=== PATIENT | male | born 1945 | race Caucasian/White ===

== ENCOUNTER 2022-11-28 14:54 | Observation (INO) ==
--- NOTE | 2022-11-28 15:39 | XRay Report ---
XR chest 1V portable HISTORY: 77 years-old Male sob acute shortness of breath COMPARISON: AP view of the chest TECHNIQUE: AP view of the chest FINDINGS: Cardiomediastinal and hilar silhouettes are unchanged. No pneumothorax, pleural effusion, airspace co nsolidation or overt edema. Unchanged right hemidiaphragmatic elevation. Degenerative changes of the shoulders and spine. IMPRESSION: Cardiomegaly without acute process. ACT 112: Negative or not required by law. The above report was generated using voice recognition software. It may contain grammatical, syntax o r spelling errors. Electronically signed by: Denys Hsieh M.D. 11/28/2022 3:37 PM
[2022-11-28] MEDS ORDERED: ASPIRIN CHEW 324 MG PO STA (15:40)
[2022-11-28 16:12] LABS: Basophils # (auto) 0.03 K/uL (0-0.2); Basophils % (auto) 0.3 %; Eosinophils # (auto) 0.07 K/uL (0-0.50); Eosinophils % (auto) 0.7 %; Hematocrit (blood only) 49.1 % (42.0-52.0); Hemoglobin 16.4 g/dl (14.0-18.0); Immature Granulocytes # (auto) 0.06 K/uL (0.01-0.20); Immature Granulocytes % (auto) 0.6 %; Lymphocytes # (auto) 1.47 K/uL (1.2-3.4); Lymphocytes % (auto) 13.8 %; Mean Corpuscular Hemoglobin 33.2 pg (25.0-34.0); Mean Corpuscular Hgb Conc 33.4 g/dL (32.0-36.0); Mean Corpuscular Volume 99.4 fL (80.0-100.0); Mean Platelet Volume 10.2 fL (9.4-12.4); Monocytes % (auto) 7.5 %; Neutrophils % (auto) 77.1 %; Platelet Count 169 K/uL (130-400); RDW Coefficient of Variation 13.3 % (11.5-14.5); RDW Standard Deviation 48.6 fL (36.4-46.3); Red Blood Count 4.94 M/uL (4.70-6.10); White Blood Count 10.63 K/ul (4.8-10.8)
--- NOTE | 2022-11-28 16:12 | Emergency Department Note ---
Impression & Plan LANG (dyspnea on exertion), Elevated troponin I level, Abnormal EKG ED Provider Note NAME: GABRIELE CALI AGE: 77 SEX: M : 1945 ARRIVES VIA: Walk-In INFORMANT: Patient, ED PROVIDER(S): Juan Dupree DO CHIEF COMPLAINT: Difficulty breathing HPI: The patient is a 77-year-old male who presented to the emergency department from his primary care physician's office. The patient states he normally is able to get on an exercise machine and do a full workout. He has been noticing over the last 2 to 3 days that his exercise tolerance has been decreased. He becomes very short of breath with any exertion. He denied having any chest pain. He denies have any lower extremity swelling. At rest he states he has no chest pain shortness of breath or other symptoms. The patient denies having any nausea or vomiting. He went to see his family doctor for the symptoms and had an EKG which was abnormal. For this reason he was sent to the emergency department for further evaluation. He has no cardiac history. He states he is being treated for high cholesterol or hypertension. The patient states he has been compliant with his outpatient medications. ROS: See above HPI for pertinent positives & negatives. A total of 10 systems reviewed and were otherwise negative. PAST MEDICAL HISTORY: See Below PAST SURGICAL HISTORY: See Below FAMILY HISTORY: See Below SOCIAL HISTORY: See Below HOME MEDICATIONS: See Below ALLERGIES: See Below VITALS: See Below PHYSICAL EXAMINATION: GENERAL: Patient is awake alert in no acute distress patient is resting comfortably and showing no signs of anxiety EYES: The conjunctivae are clear. The pupils are round and reactive. EARS, NOSE, MOUTH AND THROAT: The nose is without any evidence of any deformity. NECK: The neck is nontender and supple. RESPIRATORY: Normal respiratory effort is noted there is no evidence of wheezing rhonchi or rales CARDIOVASCULAR: Regular rate and rhythm noted there no murmurs rubs or gallops normal S1 normal S2. GASTROINTESTINAL: The abdomen is soft. Abdomen is nontender. MUSCULOSKELETAL/EXTREMITIES: There is no evidence of gross deformity full range of motion is noted in the hips and shoulders. SKIN: There is no obvious evidence of any rash. Trace pedal edema was noted bilaterally. Skin was warm and dry. NEUROLOGIC: Patient is awake alert and oriented x3 MEDICAL DECISION MAKING: The patient is a 77-year-old male who presented to the emergency department for an evaluation of a dyspnea on exertion. The patient was experiencing dyspnea exertion over the course the last 48 hours. EKG was done in the office which revealed T wave abnormalities that were consistent with ischemia. The patient continues to have T wave abnormalities on EKG in the emergency department. He was also found to have an elevation in his troponin. I discussed patient's laboratory and radiographic studies with him. I also discussed the limitations of the emergency room work-up for coronary artery disease and ischemia in the emergency department. Ultimately I feel the patient is likely having an anginal equivalent. He does not have ongoing symptoms. He is not tachycardic or hypoxic. I do feel the patient will require further inpatient management which could include further cardiac work-up including serial troponins or possibly stress test or even cardiac catheterization. I discussed this with the patient and he was agreeable with the plan. The patient was asymptomatic at this time. He was treated with aspirin in the emergency department. His case was discussed with the on-call [facility] hospitalist. Triage Nursing notes reviewed. Prior medical records reviewed Vital Signs: reviewed and remarkable for no significant abnormalities Differential diagnosis: Reactive airway disease, pneumonia, pneumothorax, COPD, CHF, infections, cardiac ischemia, pulmonary embolism, musculoskeletal, gastrointestinal, as well as other pathologies. ER treatment provided: See below Diagnostics interpreted by me: ECG: EKG was obtained in the emergency department. My interpretation is normal sinus rhythm at 89 bpm. There is no ectopy. Diffuse ST abnormalities with T wave versions were noted. This was compared to a tracing from May 02, 2015. The T wave abnormalities are new compared to the previous tracing. The patient's EKG from the primary care physician's office was reviewed. My interpretation is normal sinus rhythm at 85 bpm. T wave inversions were noted in the inferior anterior and lateral leads. The high lateral leads appear to be spared. This compares similarly to the EKG obtained in the emergency department. Cardiac Monitoring: An order was placed for continuous cardiac monitoring. The monitor shows a rate of 85 bpm with sinus rhythm. Laboratory studies: As stated above and show below. Imaging studies: See below. Radiographic imaging was reviewed by myself Consultation(s): Dr. White was notified about the patient. 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 Beliefs That Will Affect Care: None Current Living Situation: Spouse Feels Safe at Home: Yes Assistive Devices: None Allergies Allergies Allergy/AdvReac Type Severity Reaction Status Date / Time No Known Allergies Allergy Unknown Verified 11/28/22 17:10 Home Meds Home Medications Medication Instructions Recorded Confirmed atorvastatin 40 mg tablet 40 mg PO QAM 12/10/21 11/28/22 latanoprost 0.005 % eye drops 1 drp OPB HS 12/10/21 11/28/22 losartan 50 mg tablet 50 mg PO QAM 12/10/21 11/28/22 meloxicam 7.5 mg tablet 7.5 mg PO QAM 12/10/21 11/28/22 timolol 0.5 % eye drops 1 drp OPL BID 12/10/21 11/28/22 ammonium lactate 12 % lotion 1 applic topical BID 11/28/22 11/28/22 olmesartan 20 mg tablet 20 mg PO DAILY 11/28/22 11/28/22 Results & Data (ED) Vital Signs Vital Signs - 24 hr 11/28/22 15:00 11/28/22 15:54 11/28/22 17:06 Temperature 36.3 C L Temperature Source Temporal Artery Scan Pulse Rate 91 H Pulse Rate [Apical] 85 82 Pulse Rhythm [Apical] Regular Respiratory Rate 18 16 20 Respiratory Effort / Characteristics Non-Labored Non-Labored Non-Labored Respiratory Depth Normal Normal Normal Respiratory Pattern Blood Pressure 148/96 H Blood Pressure [Right Arm] 138/76 139/83 Blood Pressure Mean 113 Blood Pressure Mean [Right Arm] 96 101 Pulse Oximetry 96 94 Oxygen Delivery Method Room Air Room Air Sepsis Recent Fever Within 48 Hours No Sepsis New/Unexplained Change in Mental Status No Sepsis Action Taken by Nursing No Action Required 11/28/22 17:07 11/28/22 15:00 Temperature Temperature Source Pulse Rate 82 Pulse Rate [Apical] Pulse Rhythm [Apical] Respiratory Rate 24 Respiratory Effort / Characteristics Non-Labored Respiratory Depth Normal Respiratory Pattern Regular Blood Pressure Blood Pressure [Right Arm] Blood Pressure Mean Blood Pressure Mean [Right Arm] Pulse Oximetry 94 Oxygen Delivery Method Room Air Sepsis Recent Fever Within 48 Hours Sepsis New/Unexplained Change in Mental Status Sepsis Action Taken by Detention Medications Current Medication List: was personally reviewed by me Laboratory Data Attestation: I reviewed the patient's lab results. 11/28/22 16:05 11/28/22 16:05 Lab Results 11/28/22 11/28/22 11/28/22 Range/Units 16:05 16:05 16:05 WBC 10.63 (4.8-10.8) K/ul RBC 4.94 (4.70-6.10) M/uL Hgb 16.4 (14.0-18.0) g/dl Hct 49.1 (42.0-52.0) % MCV 99.4 (80.0-100.0) fL MCH 33.2 (25.0-34.0) pg MCHC 33.4 (32.0-36.0) g/dL RDW Std Deviation 48.6 H (36.4-46.3) fL RDW Coeff of [place] 13.3 (11.5-14.5) % Plt Count 169 (130-400) K/uL MPV 10.2 (9.4-12.4) fL Immature Gran % (Auto) 0.6 % Neut % (Auto) 77.1 % Lymph % (Auto) 13.8 % [place] % (Auto) 7.5 % Eos % (Auto) 0.7 % Baso % (Auto) 0.3 % Neut # (Auto) 8.20 H (1.40-6.50) K/uL Lymph # (Auto) 1.47 (1.2-3.4) K/uL [place] # (Auto) 0.80 H (0.11-0.59) K/uL Eos # (Auto) 0.07 (0-0.50) K/uL Baso # (Auto) 0.03 (0-0.2) K/uL Immature Gran # (Auto) 0.06 (0.01-0.20) K/uL PT 10.8 (9.0-12.0) Seconds INR 1.0 (0.9-1.1) APTT 24.9 (21.0-31.0) Seconds PTT Ratio 0.9 Sodium 142 (136-145) mmol/L Potassium 4.3 (3.5-5.1) mmol/L Chloride 105 (98-107) mmol/L Carbon Dioxide 31 (21-32) mmol/L Anion Gap 6 (3-11) BUN 20 (6-23) mg/dl Creatinine 0.96 (0.6-1.4) mg/dl Est Cr Clr Drug Dosing 72.9 ml/min Est GFR ( Amer) 87.4 ml/min Est GFR (Non-Af Amer) 75.4 ml/min BUN/Creatinine Ratio 20.8 H (10-20) Glucose 105 H (70-99(Fasting)) mg/dl Calcium 9.2 (8.5-10.1) mg/dl Total Bilirubin 1.4 H (0.2-1.0) mg/dl AST 24 (13-39) U/L ALT 27 (7-52) U/L Alkaline Phosphatase 70 (34-104) U/L Troponin I High Sens 79.3 H* (0-20) pg/ml Total Protein 6.5 (6.0-8.3) gm/dl Albumin 3.8 (3.4-5.0) gm/dl Globulin 2.7 (2.5-4.0) gm/dl Albumin/Globulin Ratio 1.4 (0.9-2) SARS-CoV-2, RNA, NAAT (NEGATIVE) 11/28/22 Range/Units 16:05 WBC (4.8-10.8) K/ul RBC (4.70-6.10) M/uL Hgb (14.0-18.0) g/dl Hct (42.0-52.0) % MCV (80.0-100.0) fL MCH (25.0-34.0) pg MCHC (32.0-36.0) g/dL RDW Std Deviation (36.4-46.3) fL RDW Coeff of [place] (11.5-14.5) % Plt Count (130-400) K/uL MPV (9.4-12.4) fL Immature Gran % (Auto) % Neut % (Auto) % Lymph % (Auto) % [place] % (Auto) % Eos % (Auto) % Baso % (Auto) % Neut # (Auto) (1.40-6.50) K/uL Lymph # (Auto) (1.2-3.4) K/uL [place] # (Auto) (0.11-0.59) K/uL Eos # (Auto) (0-0.50) K/uL Baso # (Auto) (0-0.2) K/uL Immature Gran # (Auto) (0.01-0.20) K/uL PT (9.0-12.0) Seconds INR (0.9-1.1) APTT (21.0-31.0) Seconds PTT Ratio Sodium (136-145) mmol/L Potassium (3.5-5.1) mmol/L Chloride (98-107) mmol/L Carbon Dioxide (21-32) mmol/L Anion Gap (3-11) BUN (6-23) mg/dl Creatinine (0.6-1.4) mg/dl Est Cr Clr Drug Dosing ml/min Est GFR ( Amer) ml/min Est GFR (Non-Af Amer) ml/min BUN/Creatinine Ratio (10-20) Glucose (70-99(Fasting)) mg/dl Calcium (8.5-10.1) mg/dl Total Bilirubin (0.2-1.0) mg/dl AST (13-39) U/L ALT (7-52) U/L Alkaline Phosphatase (34-104) U/L Troponin I High Sens (0-20) pg/ml Total Protein (6.0-8.3) gm/dl Albumin (3.4-5.0) gm/dl Globulin (2.5-4.0) gm/dl Albumin/Globulin Ratio (0.9-2) SARS-CoV-2, RNA, NAAT NEGATIVE (NEGATIVE) Administered Medications Discontinued Medications Aspirin (Aspirin Chew 324 Mg) 324 mg PO NOW STA Stop: 11/28/22 15:41 Last Admin: 11/28/22 16:12 Dose: 324 mg Documented By: LESLIE Imaging Data Radiologist's Impression: Chest X-Ray 11/28/22 15:06 XR chest 1V portable HISTORY: 77 years-old Male sob acute shortness of breath COMPARISON: AP view of the chest TECHNIQUE: AP view of the chest FINDINGS: Cardiomediastinal and hilar silhouettes are unchanged. No pneumothorax, pleural effusion, airspace consolidation or overt edema. Unchanged right hemidiaphragm atic elevation. Degenerative changes of the shoulders and spine. IMPRESSION: Cardiomegaly without acute process. ACT 112: Negative or not required by law. The above report was generated using voice recognition software. It may contain grammatical, syntax or spelling errors. Electronically signed by: Denys Hsieh M.D. 11/28/2022 3:37 PM Discharge Plan Visit Data Chief Complaint: Shortness of Breath/Dyspnea Stated Complaint: ABNORMAL LAB RESULTS ED Provider: Juan Dupree Discharge Problem: LANG (dyspnea on exertion), Elevated troponin I level, Abnormal EKG Patient Disposition: Being Evaluated by Hospitalist Forms Stand Alone Forms: My [facility] Prescriptions Prescriptions: No Action losartan 50 mg Tablet 50 mg PO QAM latanoprost 0.005 % Drops 1 drp OPB HS atorvastatin 40 mg Tablet 40 mg PO QAM meloxicam 7.5 mg Tablet 7.5 mg PO QAM timolol 0.5 % Drops 1 drp OPL BID olmesartan 20 mg tablet 20 mg PO DAILY ammonium lactate 12 % lotion 1 applic TOPICAL BID Rx Instructions: apply to affected area on arms and legs Referrals Referrals: Davida Mota CRNP [Primary Care Provider] -
[2022-11-28 16:25] LABS: Partial Thromboplastin Ratio 0.9; Partial Thromboplastin Time 24.9 Seconds (21.0-31.0); Prothrombin Time 10.8 Seconds (9.0-12.0)
[2022-11-28 16:33] LABS: Albumin Level 3.8 gm/dl (3.4-5.0); Bilirubin,Total 1.4 mg/dl (0.2-1.0); Calcium 9.2 mg/dl (8.5-10.1); Potassium 4.3 mmol/L (3.5-5.1)
[2022-11-28 16:39] LABS: Albumin Globulin Ratio 1.4 (0.9-2); BUN Creatinine Ratio 20.8 (10-20); Creatinine Clr Calc Pharmacy 72.9 ml/min; Est GFR (African American) 87.4 ml/min; Est GFR (Non-African American) 75.4 ml/min; Globulin 2.7 gm/dl (2.5-4.0); Total Protein 6.5 gm/dl (6.0-8.3)
[2022-11-28 16:48] LABS: Troponin I High Sensitivity 79.3 pg/ml (0-20)
--- NOTE | 2022-11-28 17:13 | History & Physical Report ---
Date of Service November 28, 2022 Assessment & Plan (1) LANG (dyspnea on exertion): Plan: -Admit to med/tele -The patient is currently afebrile, hemodynamically stable, and stable on RA -Patient has been experiencing increased LANG/fatigue with his normal workout routine this week, ECG's obtained at his PCP and in the ED do show new t-wave changes in the inferior and anterolateral leads -The patient has been asymptomatic at rest, he does have risk factors for ACS such as obesity, hyperlipidemia and HTN but no previous cardiac history -Initial high sensitivity trop was elevated at 79, will obtain a repeat 2 hour then trend q6h overnight -Patient was given 324 mg PO aspirin in the ED, will continue with 81 mg PO daily for now -Will start the patient on 25 mg Po BID of metoprolol tartrate for anginal symptoms at this time -Continue to monitor on tele/pulse oximetry -Will obtain a TTE tomorrow -AM CBC and BMP (2) Elevated troponin I level: Plan: -See LANG (3) Hypertension: Plan: -Patient now on Olmesartan instead of losartan, continue -Starting BID metoprolol 25 mg PO (4) HLD (hyperlipidemia): Plan: -Continue statin (5) Glaucoma: Plan: -Continue his eye drops Plan The patient was discussed with Dr. White at the time of the admission History of Present Illness Chief Complaint: SOB Primary Care Provider: Davida Gray is a 77 year old male with a PMH significant for OA, hyperlipidemia, HTN, and glaucoma who presented to the [facility] ED on 11/28/22 with a chief complaint of dyspnea on exertion. Per the ED staff, the patient is a very active person and exercises regularly. Over the past 48 hours the patient has been significantly more weak and SOB with exertion. He went to his PCP who obtained an ECG which was apparently abnormal so they sent him to the ED. In the ED the patient was found to be afebrile, hemodynamically stable, and stable on RA. Labs were remarkable for a CBC with a WBC, hgb, and platelet count WNL, coags WNL, cr of 0.96, stable electrolytes, total bili of 1.4, initial high sensitivity trop of 79, and covid negative. Chest xray was read as "Cardiomegaly without acute process.". Her ECG in the ED today shows a NSR with left axis deviation, prolonged QTc of 535, and t-wave inversions in the inferior and anterolateral leads. Prior to admission the patient was given 324 mg PO aspirin. At the time of the exam the patient was resting comfortably in bed in no acute distress with his sitting bedside. The patient states that we goes to the gym daily. His typical workout routine is to use the treadmill and elliptical 30 minutes each. He always uses the same speed and resistance settings at baseline. On 11/25/22 the patient noticed that he was significantly more winded and "just didn't feel right" while doing his normal workouts. He denied any symptoms while at rest. Over the past two days he has had to significantly reduce his speed and resistance settings due to these symptoms, which prompted him to call his PCP. At the time of the exam the patient is currently asymptomatic while sitting in bed. He denies any chest pain, but states that he was feeling winded and tired more than usual during his workouts. He denies any other symptoms such as arm, neck, or jaw pain. The patient denies a previous cardiac history, he has a history of HTN and hyperlipidemia but is on a medication regimen and has labs checked consistently. His mother and father both passes from [facility] in their 70's but he has no family history of sudden cardiac before the age of 50. When asked about LANG and increased fatigue prior to this week he does not believe that he has been experiencing any. The patient is a Full Code and would want his to make medical decisions for him if he could not make them himself. Please refer to Dr. Dougherty's attestation for any changes in the treatment plan Allergies Allergy/AdvReac Type Severity Reaction Status Date / Time No Known Allergies Allergy Unknown Verified 11/28/22 17:10 Home Medications Medication Instructions Recorded Confirmed Type atorvastatin 40 mg tablet 40 mg PO QAM 12/10/21 11/28/22 History latanoprost 0.005 % eye drops 1 drp OPB HS 12/10/21 11/28/22 History meloxicam 7.5 mg tablet 7.5 mg PO QAM 12/10/21 11/28/22 History timolol 0.5 % eye drops 1 drp OPL BID 12/10/21 11/28/22 History ammonium lactate 12 % lotion 1 applic topical BID 11/28/22 11/28/22 History olmesartan 20 mg tablet 20 mg PO DAILY 11/28/22 11/28/22 History Past Med/Surg History Medical History (Updated 11/28/22 @ 17:45 by Conor Wood PA-C) Glaucoma HLD (hyperlipidemia) Hypertension Osteoarthritis Surgical History History of arthroscopy of left knee x 2 History of cataract surgery left History of colonoscopy History of right hip replacement History of tonsillectomy Status post total left knee replacement Family History Other No family history of adverse response to anesthesia Social History Smoking Status: Never smoker Second Hand Exposure: No; Do You Dip or Chew Tobacco: No; Hx Alcohol Use: No Hx Substance Use: No Preferred Language: Vietnamese Communication Ability: Effective 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 All systems have been reviewed and are otherwise negative. Physical Exam Physical Exam: Physical Exam: General: In no acute distress, stated age, well-nourished, good hygiene HEENT: Normocephalic, atraumatic, no scleral icterus, pupils around round, symmetrical, and reactive to light, moist mucus membranes, trachea midline, no thyromegaly Chest/Pulm: No respiratory distress, symmetrical chest expansion, clear breath sounds throughout Cardiac: RRR, no murmurs noted Abdomen: Negative for ascites and bruising, normoactive bowel sounds, soft, non-tender to palpation throughout Musculoskeletal: No acute trauma on exam Extremities: Radial, dorsalis pedis, and posterior tibial pulses are intact and symmetrical, no edema noted in the BL LE's Skin: Warm, dry, no rashes , lesions, or scars noted Neuro: Alert and oriented to person, place, month, year, and president, no focal defects, CN II-XII tested and intact, finger to nose test negative, no tremors noted Psych: No acute distress, calm and cooperative during the exam Results & Data Results & Data ([facility]) Vital Signs (Past 12 Hours) Vital Signs Temp Pulse Pulse Resp BP BP Pulse Ox 11/28/22 17:06 82 20 139/83 94 11/28/22 15:54 85 16 138/76 11/28/22 15:00 36.3 C L 91 H 18 148/96 H 96 O2 Del Method 11/28/22 17:06 Room Air 11/28/22 15:54 11/28/22 15:00 Room Air Laboratory Results Abnormal lab results 11/28/22 11/28/22 Range/Units 16:05 16:05 RDW Std Deviation 48.6 H (36.4-46.3) fL Neut # (Auto) 8.20 H (1.40-6.50) K/uL [place] # (Auto) 0.80 H (0.11-0.59) K/uL BUN/Creatinine Ratio 20.8 H (10-20) Glucose 105 H (70-99(Fasting)) mg/dl Total Bilirubin 1.4 H (0.2-1.0) mg/dl Troponin I High Sens 79.3 H* (0-20) pg/ml Diagnostic Findings Chest X-Ray 11/28/22 15:06 XR chest 1V portable HISTORY: 77 years-old Male sob acute shortness of breath COMPARISON: AP view of the chest TECHNIQUE: AP view of the chest FINDINGS: Cardiomediastinal and hilar silhouettes are unchanged. No pneumothorax, pleural effusion, airspace consolidation or overt edema. Unchanged right hemidiaphragmatic elevation. Degenerative changes of the shoulders and spine. IMPRESSION: Cardiomegaly without acute process. ACT 112: Negative or not required by law. The above report was generated using voice recognition software. It may contain grammatical, syntax or spelling errors. Electronically signed by: Denys Hsieh M.D. 11/28/2022 3:37 PM ECG Additional Comments: Poor data quality, interpretation may be adversely affected Normal sinus rhythm Left axis deviation Minimal voltage criteria for LVH, may be normal varia nt T wave abnormality, consider anterolateral ischemia Prolonged QT Abnormal ECG When compared with ECG of 02-MAY-2015 13:39, T wave inversion more evident in Inferior leads T wave inversion now evident in Anterolateral leads ... Code Status & VTE Plan Code Status Full code VTE Prophylaxis Plan VTE Prophylaxis will be ordered: Yes Supervising Physician Co-Signing Physician Notes I personally saw and examined the patient. I verified all hayes points and agree with Conor Wood PA-C with the following exceptions and/or additions: 77 year old male presents with worsening exercise tolerance with elevated high sensitivity troponin. O/E A&Ox3, HS1+2, no murmurs, Chest CTAB, Abdo SNT A/P Possible ACS - given increased troponin, start aspirin, metoprolol. Given lack of resting chest pain low possible benefit to risk ratio will defer heparin IV on admission. TTE in AM. stress echo if able. PG Care Time/CCT Total # of Minutes Spent Total Time Spent with Patient: Total time spent is greater than 50% in coordination of care (as documented) at patient's floor/unit and/or counseling patient: Coding [place] [address] INT INP/OBS CARE 2/55MIN Patient Type Established Medical Decision Making High Complexity Diagnoses LANG (dyspnea on exertion) R06.09 Elevated troponin I level R77.8 Hypertension I10 HLD (hyperlipidemia) E78.5 Glaucoma H40.9
[2022-11-28] MEDS ORDERED: METOPROLOL TARTRATE 25 MG TAB PO ONE (17:52)
--- NOTE | 2022-11-28 17:53 | Electrocardiogram Report ---
Test Reason : Blood Pressure : / mmHG Vent. Rate : 089 BPM Atrial Rate : 089 BPM P-R Int : 196 ms QRS Dur : 088 ms QT Int : 440 ms P-R-T Axes : 029 -42 -37 degrees QTc Int : 535 ms Poor data quality, interpretation may be adversely affected Normal sinus rhythm Left axis deviation Minimal voltage criteria for LVH, may be normal variant T wave abnormality, consider anterolateral ischemia Prolonged QT Abnormal ECG When compared with ECG of 02-MAY-2015 13:39, T wave inversion more evident in Inferior leads T wave inversion now evident in Anterolateral leads QT has lengthened Confirmed by Maged Bliss ([id number]) on 11/28/2022 5:52:50 PM Referred By: Confirmed By:Keith Bliss
[2022-11-28] MEDS ORDERED: ENOXAPARIN INJ 40 MG/0.4 ML SYR SQ SCH (21:00)
[2022-11-28] MEDS: METOPROLOL TARTRATE 25 MG TAB PO SCH (21:45)
[2022-11-28] MEDS: LATANOPROST 0.005% OP SOLN 2.5 ML BTL OPB SCH (22:00)
[2022-11-28] MEDS: TIMOLOL MALEATE 0.5% OP SOLN 5 ML BTL OPL SCH (22:00)
[2022-11-29 06:24] LABS: Hematocrit (blood only) 46.4 % (42.0-52.0); Hemoglobin 15.4 g/dl (14.0-18.0); Mean Corpuscular Hgb Conc 33.2 g/dL (32.0-36.0); Mean Corpuscular Volume 99.6 fL (80.0-100.0); Mean Platelet Volume 10.3 fL (9.4-12.4); Platelet Count 166 K/uL (130-400); RDW Coefficient of Variation 13.5 % (11.5-14.5); RDW Standard Deviation 49.2 fL (36.4-46.3); Red Blood Count 4.66 M/uL (4.70-6.10); White Blood Count 8.57 K/ul (4.8-10.8)
[2022-11-29 06:46] LABS: Calcium 8.4 mg/dl (8.5-10.1)
[2022-11-29 06:52] LABS: BUN Creatinine Ratio 25.3 (10-20); Est GFR (African American) 97.7 ml/min; Est GFR (Non-African American) 84.3 ml/min
[2022-11-29] MEDS: OLMESARTAN MEDOXOMIL 20 MG TAB PO SCH (08:10)
[2022-11-29] MEDS: METOPROLOL TARTRATE 25 MG TAB PO SCH ×2 (08:10→19:20)
[2022-11-29] MEDS: ATORVASTATIN 40 MG TAB PO SCH (08:10)
[2022-11-29] MEDS: ASPIRIN 81 MG ECTAB PO SCH (08:10)
[2022-11-29] MEDS: TIMOLOL MALEATE 0.5% OP SOLN 5 ML BTL OPL SCH ×2 (08:11→19:20)
--- NOTE | 2022-11-29 09:15 | XCELERA ---
[id number]
[2022-11-29] MEDS ORDERED: OPTIRAY 320 500ml IV ONE (16:18)
--- NOTE | 2022-11-29 16:39 | CT Scan Report ---
CT ANGIOGRAPHY OF THE CHEST, PULMONARY EMBOLUS PROTOCOL CLINICAL HISTORY: Exertional Dyspnea. COMPARISON STUDY: Chest CT December 29, 2008. Chest radiograph November 28, 2022. TECHNIQUE: Following IV administration of 116 mL of Optiray, helical axial images of the chest were o btained utilizing the pulmonary embolus protocol. Maximal intensity projections and sagittal and cor onal reformats were viewed on an independent 3D workstation. IV contrast was administered without co mplication. Automated exposure control was utilized for the study. A dose lowering technique was ut ilized adhering to the principles of ALARA. CT DOSE: 518.71 mGy.cm FINDINGS: Extensive bilateral pulmonary emboli are present. These include emboli within the distal b ilateral pulmonary arteries extending into the lobar branches of both lungs. There is mild dilatation of the right heart chambers and slight straightening of the interventricular septum. Central pulmona ry arteries are dilated. Mild cardiomegaly and extensive coronary artery calcification is present. Th ere is mild dilatation of the ascending aorta, measuring 4.3 cm. No pneumothorax or pleural effusion is present. A 3.8 x 2.6 cm subpleural groundglass opacity within the right upper lobe is present. Thi s represents a pulmonary infarct. No additional pulmonary infarcts are present. There is no thoracic lymphadenopathy. Visualized bony thorax is unremarkable. A 5 mm right upper lobe nodule on image 170 of [address] of December 29, 2008. This is benign. IMPRESSION: 1. Extensive bilateral pulmonary emboli with probable mild right heart strain, as described above. Fi ndings discussed with Dr. Mcqueen at time of dictation. 2. 3.8 x 2.6 cm subpleural groundglass opacity within the right upper lobe consistent with a pulmonar y infarct. 3. Mild dilatation of the ascending aorta, measuring 4.3 cm. ACT 112: Negative or not required by law. Electronically signed by: Huang Mckoy M.D. 11/29/2022 4:37 PM
[2022-11-29] MEDS ORDERED: ENOXAPARIN 1 MG/KG SQ SCH (16:45)
[2022-11-29] MEDS: ENOXAPARIN 100 MG/1ML SYR SQ SCH (17:29)
[2022-11-29] MEDS: LATANOPROST 0.005% OP SOLN 2.5 ML BTL OPB SCH (19:20)
--- NOTE | 2022-11-29 19:36 | Hospitalist Progress Note ---
Date of Service November 29, 2022 Assessment & Plan (1) Pulmonary emboli: Plan: Extensive pulmonary embolism multifocal bilateral with no hypoxia in resting position complicated with a small pulmonary infarct, no identified risk factor except for age and having history of miscarriage in his family (mother) No evidence of cardiopulmonary compromise based on the echocardiogram and oxygen requirement Doppler study to rule out DVT Patient needs hypercoagulable work-up on outpatient basis Started on Lovenox full dose (2) Elevated troponin I level: Plan: - Secondary to above (3) HLD (hyperlipidemia): Plan: -Continue statin (4) Glaucoma: Plan: -Continue his eye drops Admission and Anticipated Discharge Date Admission Date: November 28, 2022 Physical Exam Physical Exam: Physical Exam: General: In no acute distress, stated age, well-nourished, good hygiene HEENT: Normocephalic, atraumatic, no scleral icterus, pupils around round, symmetrical, and reactive to light, moist mucus membranes, trachea midline, no thyromegaly Chest/Pulm: No respiratory distress, symmetrical chest expansion, clear breath sounds throughout Cardiac: RRR, no murmurs noted Abdomen: Negative for ascites and bruising, normoactive bowel sounds, soft, non-tender to palpation throughout Musculoskeletal: No acute trauma on exam Extremities: Radial, dorsalis pedis, and posterior tibial pulses are intact and symmetrical, no edema noted in the BL LE's Skin: Warm, dry, no rashes , lesions, or scars noted Neuro: Alert and oriented to person, place, month, year, and president, no focal defects, CN II-XII tested and intact, finger to nose test negative, no tremors noted Psych: No acute distress, calm and cooperative during the exam Results & Data Results & Data ([facility]) Vital Signs (Past 12 Hours) Vital Signs Temp Pulse Resp BP Pulse Ox O2 Del Method 11/29/22 19:09 36.6 C 81 18 131/75 93 Room Air 11/29/22 16:21 36.6 C 65 18 126/85 94 Room Air 11/29/22 12:11 36.5 C 60 19 139/76 96 Room Air 11/29/22 07:35 36.5 C 66 18 162/82 H 94 Room Air PG Care Time/CCT Total # of Minutes Spent Total Time Spent with Patient: Total time spent is greater than 50% in coordination of care (as documented) at patient's floor/unit and/or counseling patient: Coding Level of Care Code 60653 SUB INP/OBS CARE MIN Diagnoses Pulmonary emboli I26.99 Elevated troponin I level R77.8 HLD (hyperlipidemia) E78.5 Glaucoma H40.9
[2022-11-29] MEDS ORDERED: POLYETHYLENE (MIRALAX) 17 GM PACK PO PRN (19:42)
[2022-11-30] MEDS: ENOXAPARIN 100 MG/1ML SYR SQ SCH ×2 (05:04→15:31)
[2022-11-30 06:54] LABS: Calcium 8.8 mg/dl (8.5-10.1); Potassium 4.1 mmol/L (3.5-5.1)
[2022-11-30 07:00] LABS: BUN Creatinine Ratio 24.4 (10-20); Creatinine Clr Calc Pharmacy 90.2 ml/min; Est GFR (African American) 100.2 ml/min; Est GFR (Non-African American) 86.5 ml/min
--- NOTE | 2022-11-30 07:31 | Electrocardiogram Report ---
Test Reason : Blood Pressure : / mmHG Vent. Rate : 068 BPM Atrial Rate : 068 BPM P-R Int : 194 ms QRS Dur : 090 ms QT Int : 498 ms P-R-T Axes : 035 -38 -50 degrees QTc Int : 529 ms Normal sinus rhythm Left axis deviation Moderate voltage criteria for LVH, may be normal variant Prolonged QT Abnormal ECG When compared with ECG of 28-NOV-2022 15:28, No significant change was found Confirmed by Maged Bliss ([id number]) on 11/30/2022 7:30:51 AM Referred By: REFERRED SELF Confirmed By:Keith Bliss
[2022-11-30] MEDS: METOPROLOL TARTRATE 25 MG TAB PO SCH (07:58)
[2022-11-30] MEDS: ATORVASTATIN 40 MG TAB PO SCH (07:58)
[2022-11-30] MEDS: ASPIRIN 81 MG ECTAB PO SCH (07:58)
[2022-11-30] MEDS: OLMESARTAN MEDOXOMIL 20 MG TAB PO SCH (07:58)
[2022-11-30] MEDS: TIMOLOL MALEATE 0.5% OP SOLN 5 ML BTL OPL SCH (07:59)
[2022-11-30] MEDS ORDERED: SENNA 8.6 MG TAB PO SCH (09:00)
[2022-11-30] MEDS ORDERED: OPTIRAY 350 100ml IV ONE (10:33)
--- NOTE | 2022-11-30 10:50 | CT Scan Report ---
CT OF THE ABDOMEN AND PELVIS WITH CONTRAST CLINICAL HISTORY: Pulmonary emboli. Rule Out Malignancy. COMPARISON STUDY: CT of the abdomen and pelvis May 02, 2015 and KUB November 08, 2015. TECHNIQUE: Following IV administration of 88 mL of Optiray, axial images of the abdomen and pelvis we re obtained from the lung bases to the proximal femurs. Images were reviewed in the axial, sagittal, and coronal planes. IV contrast was administered without complication. Automated exposure control wa s utilized for the study. A dose lowering technique was utilized adhering to the principles of ALARA . Oral contrast was administered. CT DOSE: 1151.58 mGy.cm FINDINGS: Bilateral pulmonary emboli were shown on chest CT of November 29, 2022. No pneumatosis, free air or portal venous gas is present. Liver, as seen, adrenal glands and pancreas are unremarkable. T here is no biliary or pancreatic ductal dilatation. No peripancreatic or pericholecystic stranding is present. There are no hepatic lesions. Bilateral renal parapelvic cysts are noted. Small bilateral r enal calculi are present. There are no ureteral calculi and there is no hydronephrosis. Extensive col onic diverticulosis is present. There is no evidence for acute diverticulitis. The appendix is normal . The caliber and wall thickness of small and large bowel are normal. There is no abdominal or pelvic lymphadenopathy. Contrast within the bladder is from recent contrast-enhanced chest CT. Images of th e pelvis are degraded by streak artifact from right hip arthroplasty. No suspicious osseous lesions a re noted. There are no acute fractures. IMPRESSION: 1. No CT evidence for malignancy within the abdomen or pelvis. 2. Bilateral nephrolithiasis. No ureteral calculi. 3. Bilateral pulmonary emboli, as shown on chest CT of November 29, 2022. 4. Extensive colonic diverticulosis. No evidence for acute diverticulitis. ACT 112: Negative or not required by law. Electronically signed by: Huang Mckoy M.D. 11/30/2022 10:48 AM
--- NOTE | 2022-11-30 11:16 | Ultrasound Report ---
BILATERAL LOWER EXTREMITY VENOUS DOPPLER CLINICAL HISTORY: Pulmonary emboli. Evaluate for deep venous thrombus. COMPARISON STUDY: No previous studies for comparison. TECHNIQUE: Sonography of the deep venous system of the bilateral lower extremities was performed. Co mpression and augmentation were evaluated. FINDINGS: No deep venous thrombus is identified within the right lower extremity. The left superfici al femoral and popliteal veins are duplicated and there is deep venous thrombus within one of the gail red left superficial femoral and popliteal veins. IMPRESSION: 1. Deep venous thrombus within the left superficial femoral and popliteal veins. 2. No deep venous thrombus within the right lower extremity. ACT 112: Negative or not required by law. Electronically signed by: Huang Mckoy M.D. 11/30/2022 11:15 AM
--- NOTE | 2022-11-30 18:44 | Discharge Summary ---
Date of Service November 30, 2022 Admission HPI Per Admitting Provider Isaac is a 77 year old male with a PMH significant for OA, hyperlipidemia, HTN, and glaucoma who presented to the [facility] ED on 11/28/22 with a chief complaint of dyspnea on exertion. Per the ED staff, the patient is a very active person and exercises regularly. Over the past 48 hours the patient has been significantly more weak and SOB with exertion. He went to his PCP who obtained an ECG which was apparently abnormal so they sent him to the ED. In the ED the patient was found to be afebrile, hemodynamically stable, and stable on RA. Labs were remarkable for a CBC with a WBC, hgb, and platelet count WNL, coags WNL, cr of 0.96, stable electrolytes, total bili of 1.4, initial high sensitivity trop of 79, and covid negative. Chest xray was read as "Cardiomegaly without acute process.". Her ECG in the ED today shows a NSR with left axis deviation, prolonged QTc of 535, and t-wave inversions in the inferior and anterolateral leads. Prior to admission the patient was given 324 mg PO aspirin. At the time of the exam the patient was resting comfortably in bed in no acute distress with his sitting bedside. The patient states that we goes to the gym daily. His typical workout routine is to use the treadmill and elliptical 30 minutes each. He always uses the same speed and resistance settings at baseline. On 11/25/22 the patient noticed that he was significantly more winded and "just didn't feel right" while doing his normal workouts. He denied any symptoms while at rest. Over the past two days he has had to significantly reduce his speed and resistance settings due to these symptoms, which prompted him to call his PCP. At the time of the exam the patient is currently asymptomatic while sitting in bed. He denies any chest pain, but states that he was feeling winded and tired more than usual during his workouts. He denies any other symptoms such as arm, neck, or jaw pain. The patient denies a previous cardiac history, he has a history of HTN and hyperlipidemia but is on a medication regimen and has labs checked consistently. His mother and father both passes from ME's in their 70's but he has no family history of sudden cardiac before the age of 50. When asked about LANG and increased fatigue prior to this week he does not believe that he has been experiencing any. The patient is a Full Code and would want his to make medical decisions for him if he could not make them himself. Please refer to Dr. Dougherty's attestation for any changes in the treatment plan Principal Diagnosis Extensive bilateral multifocal pulmonary embolism with no evidence of cardiopulmonary compromise Deep venous thrombosis of left superficial femoral and popliteal veins o Discharge Exam Physical Exam: General: In no acute distress, stated age, well-nourished, good hygiene HEENT: Normocephalic, atraumatic, no scleral icterus, pupils around round, symmetrical, and reactive to light, moist mucus membranes, trachea midline, no thyromegaly Chest/Pulm: No respiratory distress, symmetrical chest expansion, clear breath sounds throughout Cardiac: RRR, no murmurs noted Abdomen: Negative for ascites and bruising, normoactive bowel sounds, soft, non-tender to palpation throughout Musculoskeletal: No acute trauma on exam Extremities: Radial, dorsalis pedis, and posterior tibial pulses are intact and symmetrical, no edema noted in the BL LE's Skin: Warm, dry, no rashes , lesions, or scars noted Neuro: Alert and oriented to person, place, month, year, and president, no focal defects, CN II-XII tested and intact, finger to nose test negative, no tremors noted Psych: No acute distress, calm and cooperative during the exam Discharge Data Allergies Allergy/AdvReac Type Severity Reaction Status Date / Time No Known Allergies Allergy Unknown Verified 11/28/22 17:10 Consultations 11/28/22 17:02 ED Decision to Admit Stat Ordered Studies 11/29/22 15:52 CT angio chest PE protocol Routine 11/30/22 08:08 CT Abd and Pelvis [CT abd pelvis oral and IV con] Urgent 11/30/22 08:57 US venous doppler LE BI Routine Hospital Course (1) Pulmonary emboli: Extensive pulmonary embolism multifocal bilateral with no hypoxia in resting position complicated with a small pulmonary infarct, no identified risk factor except for age and having history of miscarriage in his family (mother) No evidence of cardiopulmonary compromise based on the echocardiogram and oxygen requirement Doppler study shows left superficial femoral vein and deep left popliteal vein thrombosis Patient needs hypercoagulable work-up on outpatient basis Started on Lovenox full dose discharged on Xarelto No evidence of cardiac strain and echocardiogram I proceeded with CT of abdomen with p.o. and IV contrast to rule out any underlying malignancy which was unremarkable Patient was advised to continue anticoagulation for at least for 6 (2) Elevated troponin I level: - Secondary to above (3) HLD (hyperlipidemia): -Continue statin (4) Glaucoma: -Continue his eye drops (5) DVT (deep venous thrombosis): Plan as mentioned above Total Time Total Time Spent Total Time Spent (In Minutes): 45 mins Discharge Plan Discharge Items Patient Disposition: Home - Self-Care Reason For Visit: LANG/CHEST DISCOMFORT Discharge Diagnosis: unprovoked DVT /PE Activity: Resume your previous activity Lifting: Gradually increase as tolerated Bathing: No limitations Sexual Activity: When tolerated Exercise/Sports: Gradually increase as tolerated Driving/Machine Use: No limitations Weightbearing: Full weightbearing Non-emergency contact: Primary Care Provider and Oncologist Call non-emergency contact if: you have any medication questions and your symptoms worsen Follow-up/Referrals: Davida Mota CRNP [Primary Care Provider] - Diet: Heart Healthy Reynaldo Attending Provider Instructions: Please ask your Primary care doctor to refer you to a Youth Ministry Director for hypercoagulable work up or your primary care doctor can proceed with the test GIVEN YOU ARE DISCHARGED ON BLOOD THINNER YOU HAVE INCREASED RISK OF BLEEDING , taking Meloxicam and Apixban can potentially increase your risk of bleeding . please consult with your primary care doctor Reynaldo Physicist [employer] Provider Instructions: for the first 21 days take Xarelto 15 mg 2 times a day and then 20 mg once a day you need to take the medication for at least 6 months Pending Studies at Discharge: No Stand-Alone Forms: My [facility] [place], Smoking Cessation Medications and DC Order Prescriptions: New Xarelto 20 mg tablet 20 mg PO DAILY Qty: 90 0RF Rx Instructions: must administer with evening meal , please start taking Xarelto 20 mg daily ONLY after you complete a 21 day treatment with Xarelto 15 mg BID Xarelto 15 mg tablet 15 mg PO BID 21 Days Qty: 42 0RF Rx Instructions: must administer with a meal/food Continued latanoprost 0.005 % Drops 1 drp OPB HS atorvastatin 40 mg Tablet 40 mg PO QAM timolol 0.5 % Drops 1 drp OPL BID olmesartan 20 mg tablet 20 mg PO DAILY ammonium lactate 12 % lotion 1 applic TOPICAL BID Rx Instructions: apply to affected area on arms and legs Discontinued meloxicam 7.5 mg Tablet 7.5 mg PO QAM Discharge Orders: Discharge Order- CHF (Routine); Ordered 11/30/22 Ordered By: Agustin Hays/Other Patient Handouts: Pulmonary Embolism, Pulmonary Embolism Dc Admission Data Admit Date/Time: 11/28/22 17:23 Attending Provider: Agustin Mcqueen Admit Provider: Martin White Primary Care Provider: Davida Mota Other Providers: Martin White Other Interventions: Discharge Summary Assessment (RN) Last Done: 11/30/22 15:08 Coding Level of Care Code HOSP INP/OBS DISCH >30 MIN Diagnoses Pulmonary emboli I26.99 Elevated troponin I level R77.8 HLD (hyperlipidemia) E78.5 Glaucoma H40.9 DVT (deep venous thrombosis) I82.409
== END 2022-11-30 15:38 | disposition home or self-care (01) ==
LOC: ED 14:54 → EDINP 14:54 → SUATTDRO 17:23 → 2S 20:42

== ENCOUNTER 2022-12-14 01:22 | Inpatient (IN) ==
[2022-12-14] MEDS ORDERED: fentaNYL citrate 100 MCG/2 ML VIAL IV STA ×2 (01:58→03:19)
--- NOTE | 2022-12-14 02:00 | Emergency Department Note ---
History of Present Illness General Chief complaint: Back Injury/Pain Stated complaint: RIGHT LOWER BACK PAIN, HIP PAIN Time Seen by Provider: 12/14/22 01:43 History of Present Illness Maximum Pain Intensity: 8 77-year-old male with a history of a pulmonary embolism recently currently on X arelto states that he had sudden onset of right flank pain 2 hours prior to arrival urine. Patient denies any nausea vomiting denies shortness of breath denies hemoptysis states the pain is located in the right lower lumbar region. Patient denies any trauma or fever. Patient states the pain is moderate. There were no other mitigating or alleviating factors Home Medications Medication Instructions Recorded Confirmed Type atorvastatin 40 mg tablet 40 mg PO QAM 12/10/21 12/14/22 History latanoprost 0.005 % eye drops 1 drp OPB HS 12/10/21 12/14/22 History timolol 0.5 % eye drops 1 drp OPL BID 12/10/21 12/14/22 History ammonium lactate 12 % lotion 1 applic topical BID 11/28/22 12/14/22 History olmesartan 20 mg tablet 20 mg PO DAILY 11/28/22 12/14/22 History rivaroxaban 15 mg tablet (Xarelto) 15 mg PO BID 21 days #42 tabs 11/30/22 12/14/22 Rx rivaroxaban 20 mg tablet (Xarelto) 20 mg PO DAILY #90 tabs 11/30/22 12/14/22 Rx Allergies Allergy/AdvReac Type Severity Reaction Status Date / Time No Known Allergies Allergy Unknown Verified 12/14/22 02:16 Past Med/Surg History Medical History Glaucoma HLD (hyperlipidemia) Hypertension Osteoarthritis Surgical History History of arthroscopy of left knee x 2 History of cataract surgery left History of colonoscopy History of right hip replacement History of tonsillectomy Status post total left knee replacement Family History Other No family history of adverse response to anesthesia Social History Smoking Status: Never smoker Second Hand Exposure: No; Hx Alcohol Use: No Hx Substance Use: No Preferred Language: Australian Communication Ability: Effective Publications Writer Required: No Beliefs That Will Affect Care: None Current Living Situation: Spouse Feels Safe at Home: Yes Assistive Devices: Glasses Review of Systems A total of 10 systems reviewed and were otherwise negative Physical Exam Vital Signs Vital Signs - 24 hr 12/14/22 01:26 12/14/22 03:21 12/14/22 03:32 Temperature 36.8 C Temperature Source Temporal Artery Scan Pulse Rate 69 Pulse Rate [Apical] 57 L Respiratory Rate 18 16 Respiratory Effort / Characteristics Non-Labored Spontaneous Respiratory Depth Normal Respiratory Pattern Regular Blood Pressure 217/119 H Blood Pressure [Left Arm] 129/73 Blood Pressure Mean 151 Blood Pressure Mean [Left Arm] 91 Pulse Oximetry 98 98 94 Oxygen Delivery Method Room Air Room Air Room Air Sepsis Recent Fever Within 48 Hours No Sepsis New/Unexplained Change in Mental Status No Sepsis Action Taken by Nursing No Action Required GENERAL: Patient is awake alert in no acute distress patient is resting comfortably and showing no signs of anxiety EYES: The conjunctivae are clear. The pupils are round and reactive. EARS, NOSE, MOUTH AND THROAT: The nose is without any evidence of any deformity. Mucous membranes are moist. Tongue is midline. NECK: The neck is nontender and supple. RESPIRATORY: Normal respiratory effort is noted there is no evidence of wheezing rhonchi or rales CARDIOVASCULAR: Regular rate and rhythm noted there no murmurs rubs or gallops normal S1 normal S2. GASTROINTESTINAL: The abdomen is soft. Abdomen is nontender. BACK: No midline tenderness or or step-off noted range of motion in flexion extension as well as rotation no signs of muscle spasm noted ; mild tenderness in the right low lumbar region MUSCULOSKELETAL/EXTREMITIES: There is no evidence of gross deformity full range of motion is noted in the hips and shoulders. SKIN: There is no obvious evidence of any rash. There are no petechiae, pallor or cyanosis noted. NEUROLOGIC: Patient is awake alert and oriented x3 strength is symmetric Course Reevaluation(s) Reevaluation #1: Patient was given IV fluids IV Zofran IV fentanyl, Flomax, continues to complain of pain that is moderate in nature. Time: 03:23 Consultations Consultation #1: [facility] intractable back pain with ureterolithiasis Time: 03:50 Administered Medications Discontinued Medications Fentanyl Citrate (Fentanyl Citrate 100 Mcg/2 Ml Vial) 50 mcg IV NOW STA Stop: 12/14/22 01:59 Last Admin: 12/14/22 02:14 Dose: 50 mcg Documented By: REAGAN Fentanyl Citrate (Fentanyl Citrate 100 Mcg/2 Ml Vial) 50 mcg IV NOW STA Stop: 12/14/22 03:20 Last Admin: 12/14/22 03:27 Dose: 50 mcg Documented By: JACOB Tamsulosin HCl (Tamsulosin Hcl 0.4 Mg Cap) 0.4 mg PO NOW ONE Stop: 12/14/22 03:04 Last Admin: 12/14/22 03:17 Dose: 0.4 mg Documented By: JACOB Medical Decision Making Medical Records Attestation: I reviewed the patient's medical records. Home Medications Current Medication List: was personally reviewed by me Laboratory Data Attestation: I reviewed the patient's lab results. Patient's labs are reviewed by me and are unremarkable 12/14/22 02:03 12/14/22 02:03 Lab Results 12/14/22 12/14/22 12/14/22 Range/Units 02:03 02:03 02:03 WBC 7.79 (4.8-10.8) K/ul RBC 4.62 L (4.70-6.10) M/uL Hgb 15.4 (14.0-18.0) g/dl Hct 45.3 (42.0-52.0) % MCV 98.1 (80.0-100.0) fL MCH 33.3 (25.0-34.0) pg MCHC 34.0 (32.0-36.0) g/dL RDW Std Deviation 46.7 H (36.4-46.3) fL RDW Coeff of Eloina 13.2 (11.5-14.5) % Plt Count 263 (130-400) K/uL MPV 10.2 (9.4-12.4) fL Immature Gran % (Auto) 0.5 % Neut % (Auto) 72.8 % Lymph % (Auto) 18.4 % [place] % (Auto) 6.7 % Eos % (Auto) 1.3 % Baso % (Auto) 0.3 % Neut # (Auto) 5.68 (1.40-6.50) K/uL Lymph # (Auto) 1.43 (1.2-3.4) K/uL [place] # (Auto) 0.52 (0.11-0.59) K/uL Eos # (Auto) 0.10 (0-0.50) K/uL Baso # (Auto) 0.02 (0-0.2) K/uL Immature Gran # (Auto) 0.04 (0.01-0.20) K/uL PT 13.8 H (9.0-12.0) Seconds INR 1.3 H (0.9-1.1) APTT 43.0 H (21.0-31.0) Seconds PTT Ratio 1.6 Sodium 139 (136-145) mmol/L Potassium 4.2 (3.5-5.1) mmol/L Chloride 105 (98-107) mmol/L Carbon Dioxide 29 (21-32) mmol/L Anion Gap 5 (3-11) BUN 21 (6-23) mg/dl Creatinine 1.37 (0.6-1.4) mg/dl Est Cr Clr Drug Dosing 50.9 ml/min Est GFR ( Amer) 56.9 ml/min Est GFR (Non-Af Amer) 49.1 ml/min BUN/Creatinine Ratio 15.3 (10-20) Glucose 124 H (70-99(Fasting)) mg/dl Calcium 9.1 (8.5-10.1) mg/dl Total Bilirubin 0.5 (0.2-1.0) mg/dl AST 31 (13-39) U/L ALT 32 (7-52) U/L Alkaline Phosphatase 62 (34-104) U/L Troponin I High Sens 24.2 H (0-20) pg/ml Total Protein 6.7 (6.0-8.3) gm/dl Albumin 3.9 (3.4-5.0) gm/dl Globulin 2.8 (2.5-4.0) gm/dl Albumin/Globulin Ratio 1.4 (0.9-2) Lipase 22 (11-82) U/L Imaging Data Attestation: I personally reviewed and interpreted this imaging study as follows: My Impression: Chest x-ray interpreted by me negative for infiltrate CT abdomen pelvis reviewed by me and appreciate radiologist's interpretation Radiologist's Impression: Patient: GABRIELE CALI (Male) : 43 Status: ER Date: 12/14/22 02:29 Room #: History: appendix present, rt side flank pain, no known hematuria, history of stones Slices: 805 Priors: Tech: Jing Perez @ [phone] Exams: CT ABDOMEN & PELVIS Without Contrast Contrast: Accession Numbers: [id number] Referring Physician: KEMAL ENGLAND Preliminary Findings Only See Final Report For Complete Findings CT ABDOMEN & PELVIS Without Contrast: There is mild right-sided hydroureteronephrosis extending to a 3 mm mid ureteral calculus (image 53 series 2). There are punctate nonobstructing left-sided intrarenal calculi. Additional chronic findings will be described on the final r eport. ECG Data Attestation: I personally reviewed and interpreted this ECG as follows: Additional Comments: EKG interpreted by me sinus rhythm first-degree AV block rate of 68 left axis deviation and left ventricular hypertrophy nonspecific ST-T change MDM Narrative Medical decision making differential diagnosis ureterolithiasis, renal colic, or spasm, bowel obstruction, urinary tract infection Plan is to check labs, CT give IV pain medicine The external medical records were reviewed by me Nursing notes were reviewed by me patient was found to have a 3 mm ureteral stone, patient continues to complain of significant pain. Patient is on antico agulation,. Kidney stone with intractable back pain Impression & Plan Ureterolithiasis Discharge Plan Visit Data Chief Complaint: Back Injury/Pain Stated Complaint: RIGHT LOWER BACK PAIN, HIP PAIN ED Provider: Kemal England Discharge Problem: Ureterolithiasis Patient Disposition: Admitted As Inpatient Forms Stand Alone Forms: My [facility] Prescriptions Prescriptions: No Action latanoprost 0.005 % Drops 1 drp OPB HS atorvastatin 40 mg Tablet 40 mg PO QAM timolol 0.5 % Drops 1 drp OPL BID olmesartan 20 mg tablet 20 mg PO DAILY ammonium lactate 12 % lotion 1 applic TOPICAL BID Rx Instructions: apply to affected area on arms and legs Xarelto 20 mg tablet 20 mg PO DAILY Qty: 90 0RF Rx Instructions: TO START ON 12/22/22. must administer with evening meal , please start taking Xarelto 20 mg daily ONLY after you complete a 21 day treatment with Xarelto 15 mg BID Xarelto 15 mg tablet 15 mg PO BID 21 Days Qty: 42 0RF Rx Instructions: must administer with a meal/food Referrals Referrals: Davida Mota CRNP [Primary Care Provider] -
[2022-12-14 02:24] LABS: Basophils # (auto) 0.02 K/uL (0-0.2); Basophils % (auto) 0.3 %; Eosinophils % (auto) 1.3 %; Hematocrit (blood only) 45.3 % (42.0-52.0); Hemoglobin 15.4 g/dl (14.0-18.0); Immature Granulocytes # (auto) 0.04 K/uL (0.01-0.20); Immature Granulocytes % (auto) 0.5 %; Lymphocytes # (auto) 1.43 K/uL (1.2-3.4); Lymphocytes % (auto) 18.4 %; Mean Corpuscular Hemoglobin 33.3 pg (25.0-34.0); Mean Corpuscular Volume 98.1 fL (80.0-100.0); Mean Platelet Volume 10.2 fL (9.4-12.4); Monocytes # (auto) 0.52 K/uL (0.11-0.59); Monocytes % (auto) 6.7 %; Neutrophils # (auto) 5.68 K/uL (1.40-6.50); Neutrophils % (auto) 72.8 %; Platelet Count 263 K/uL (130-400); RDW Coefficient of Variation 13.2 % (11.5-14.5); RDW Standard Deviation 46.7 fL (36.4-46.3); Red Blood Count 4.62 M/uL (4.70-6.10); White Blood Count 7.79 K/ul (4.8-10.8)
[2022-12-14 02:34] LABS: Albumin Globulin Ratio 1.4 (0.9-2); Albumin Level 3.9 gm/dl (3.4-5.0); BUN Creatinine Ratio 15.3 (10-20); Bilirubin,Total 0.5 mg/dl (0.2-1.0); Calcium 9.1 mg/dl (8.5-10.1); Creatinine Clr Calc Pharmacy 50.9 ml/min; Est GFR (African American) 56.9 ml/min; Est GFR (Non-African American) 49.1 ml/min; Globulin 2.8 gm/dl (2.5-4.0); Potassium 4.2 mmol/L (3.5-5.1); Total Protein 6.7 gm/dl (6.0-8.3)
[2022-12-14 02:41] LABS: Troponin I High Sensitivity 24.2 pg/ml (0-20)
[2022-12-14 02:50] LABS: INR 1.3 (0.9-1.1); Partial Thromboplastin Ratio 1.6; Prothrombin Time 13.8 Seconds (9.0-12.0)
[2022-12-14] MEDS ORDERED: TAMSULOSIN HCL 0.4 MG CAP PO ONE (03:03)
--- NOTE | 2022-12-14 04:06 | History & Physical Report ---
Date of Service December 14, 2022 Assessment & Plan (1) Ureterolithiasis: Plan: 77-year-old male with history of hypertension, hyperlipidemia, recently diagnosed with extensive bilateral pulmonary emboli on Xarelto anticoagulation presenting with severe acute right flank pain. Found to have an obstructing ureterolithiasis 3 mm in size with associated right-sided hydroureteronephrosis. Pain well controlled after 2 doses of IV fentanyl 50 mcg. Nausea improved. P atient does have a remote history of renal stones approximately 5 years ago had lithotripsy performed. Observation to medical Strain urine Continue Flomax 0.4 mg p.o. daily IV fluid with LR at 100 mL/h x 1 L Zofran as needed for nausea Morphine as needed for pain Urology consultation appreciated (2) Pulmonary emboli: Plan: Patient with recently diagnosed extensive bilateral pulmonary emboli as well as left lower extremity VTE. He is presently on Xarelto anticoagulation (50 mg p.o. twice daily x21-day course). Has been compliant with medications. Denies chest pain. He does have occasional shortness of breath. Adequate oxygenation on room air Continue Xarelto 15 mg p.o. twice daily (3) Hypertension: Plan: Blood pressure well controlled. Presently 129/73 Continue olmesartan 20 mg p.o. daily (4) HLD (hyperlipidemia): Plan: Chronic. Stable on medication. Continue atorvastatin 40 mg p.o. every morning F/E/NLR, monitor electrolytes, n.p.o. Prophylaxiscontinue Xarelto as above Codefull per discussion with patient Dispositionobservation to medical floor History of Present Illness Chief Complaint: Right flank pain Primary Care Provider: Davida Mota Isaac Knox is a [age]-year-old male with history of hypertension and hyperlipidemia. He was recently hospitalized from 11/28/2022 through 11/30/2022 with unprovoked extensive pulmonary emboli and small pulmonary infarct. Patient also found to have a left superficial femoral vein and deep left popliteal vein thrombosis. He was managed with Lovenox and transitioned to oral Xarelto and is currently on Xarelto 50 mg p.o. twice daily. He notes that during his previous hospital stay he was having some right flank discomfort however he thought that it may be due to his acute illness and that perhaps the pain would improve on its own. He was discharged home on 11/30/2022 and has overall been doing well. He has had persistent right flank pain intermittently. This evening around midnight patient was reading and had an acute onset of severe right flank pain. The pain is located in his right low back and flank. 10/10 in severity with associated nausea. Patient states that he is urinating without difficulty but it is dark in color. No dysuria. No additional complaints at this time. Specifically denies fever, chills, chest pain, cough, shortness of breath, abdominal pain, diarrhea. In the ER he is afebrile, hemodynamically stable and nontoxic in appearance. He was administered 2 doses of fentanyl for pain management and presently feels much improved. ER course: Fentanyl 50 mcg x 2 doses Tamsulosin 0.4 mg Allergies Allergy/AdvReac Type Severity Reaction Status Date / Time No Known Allergies Allergy Unknown Verified 12/14/22 02:16 Home Medications Medication Instructions Recorded Confirmed Type atorvastatin 40 mg tablet 40 mg PO QAM 12/10/21 12/14/22 History latanoprost 0.005 % eye drops 1 drp OPB HS 12/10/21 12/14/22 History timolol 0.5 % eye drops 1 drp OPL BID 12/10/21 12/14/22 History ammonium lactate 12 % lotion 1 applic topical BID 11/28/22 12/14/22 History olmesartan 20 mg tablet 20 mg PO DAILY 11/28/22 12/14/22 History rivaroxaban 15 mg tablet (Xarelto) 15 mg PO BID 21 days #42 tabs 11/30/22 12/14/22 Rx rivaroxaban 20 mg tablet (Xarelto) 20 mg PO DAILY #90 tabs 11/30/22 12/14/22 Rx Past Med/Surg History Medical History DVT (deep venous thrombosis) Glaucoma HLD (hyperlipidemia) Hypertension Osteoarthritis Pulmonary emboli Surgical History History of arthroscopy of left knee x 2 History of cataract surgery left History of colonoscopy History of right hip replacement History of tonsillectomy Status post total left knee replacement Family History Other No family history of adverse response to anesthesia Social History Smoking Status: Never smoker Second Hand Exposure: No; Hx Alcohol Use: No Hx Substance Use: No Preferred Language: Slovenian Communication Ability: Effective Bailiff Required: No Beliefs That Will Affect Care: None Current Living Situation: Spouse Feels Safe at Home: Yes Assistive Devices: Glasses Review of Systems Review of Systems: All systems reviewed & are unremarkable except as noted in HPI & below Physical Exam Physical Exam: General: patient resting comfortably, NAD, non-toxic in appearance, AA&O x 4 Skin: warm, dry, intact, no rashes or lesions HEENT: NC/AT, PERRL, EOMI, anicteric sclera, conjunctiva without injection, external ear normal to inspection and nontender, nares patent, moist mucus membranes, dentition intact, no oropharyngeal lesions, neck supple, trachea midline, no LAD, no thyromegaly, no JVD Heart: +S1/S2, regular, no m/r/g Lungs: equal air entry bilaterally, no rales/rhonchi/wheezes Abd: +BS, soft, NT/ND, no masses/organomegaly/ascites, right flank pain and CVA tenderness Ext: warm, 2+ pulses in UE/LE bilaterally, no clubbing/cyanosis, 2+ pitting edema bilateral lower extremities to mid johnson Neuro: nonfocal, patient AA&O x 4, speech intact, no facial droop, moving all extremities on command with equal strength 5/5 Results & Data Results & Data ([facility]) Vital Signs (Past 12 Hours) Vital Signs Temp Pulse Pulse Resp BP BP Pulse Ox 12/14/22 03:32 57 L 16 129/73 94 12/14/22 03:21 98 12/14/22 01:26 36.8 C 69 18 217/119 H 98 O2 Del Method 12/14/22 03:32 Room Air 12/14/22 03:21 Room Air 12/14/22 01:26 Room Air Laboratory Results Laboratory Results WBC 7.79 K/ul (4.8-10.8) 12/14/22 02:03 RBC 4.62 M/uL (4.70-6.10) L 12/14/22 02:03 Hgb 15.4 g/dl (14.0-18.0) 12/14/22 02:03 Hct 45.3 % (42.0-52.0) 12/14/22 02:03 MCV 98.1 fL (80.0-100.0) 12/14/22 02:03 MCH 33.3 pg (25.0-34.0) 12/14/22 02:03 MCHC 34.0 g/dL (32.0-36.0) 12/14/22 02:03 RDW Std Deviation 46.7 fL (36.4-46.3) H 12/14/22 02:03 RDW Coeff of [place] 13.2 % (11.5-14.5) 12/14/22 02:03 Plt Count 263 K/uL (130-400) 12/14/22 02:03 MPV 10.2 fL (9.4-12.4) 12/14/22 02:03 Immature Gran % (Auto) 0.5 % 12/14/22 02:03 Neut % (Auto) 72.8 % 12/14/22 02:03 Lymph % (Auto) 18.4 % 12/14/22 02:03 [place] % (Auto) 6.7 % 12/14/22 02:03 Eos % (Auto) 1.3 % 12/14/22 02:03 Baso % (Auto) 0.3 % 12/14/22 02:03 Neut # (Auto) 5.68 K/uL (1.40-6.50) 12/14/22 02:03 Lymph # (Auto) 1.43 K/uL (1.2-3.4) 12/14/22 02:03 [place] # (Auto) 0.52 K/uL (0.11-0.59) 12/14/22 02:03 Eos # (Auto) 0.10 K/uL (0-0.50) 12/14/22 02:03 Baso # (Auto) 0.02 K/uL (0-0.2) 12/14/22 02:03 Immature Gran # (Auto) 0.04 K/uL (0.01-0.20) 12/14/22 02:03 PT 13.8 Seconds (9.0-12.0) H 12/14/22 02:03 INR 1.3 (0.9-1.1) H 12/14/22 02:03 APTT 43.0 Seconds (21.0-31.0) H 12/14/22 02:03 PTT Ratio 1.6 12/14/22 02:03 Sodium 139 mmol/L (136-145) 12/14/22 02:03 Potassium 4.2 mmol/L (3.5-5.1) 12/14/22 02:03 Chloride 105 mmol/L (98-107) 12/14/22 02:03 Carbon Dioxide 29 mmol/L (21-32) 12/14/22 02:03 Anion Gap 5 (3-11) 12/14/22 02:03 BUN 21 mg/dl (6-23) 12/14/22 02:03 Creatinine 1.37 mg/dl (0.6-1.4) 12/14/22 02:03 Est Cr Clr Drug Dosing 50.9 ml/min 12/14/22 02:03 Est GFR ( Amer) 56.9 ml/min 12/14/22 02:03 Est GFR (Non-Af Amer) 49.1 ml/min 12/14/22 02:03 BUN/Creatinine Ratio 15.3 (10-20) 12/14/22 02:03 Glucose 124 mg/dl (70-99(Fasting)) H 12/14/22 02:03 Calcium 9.1 mg/dl (8.5-10.1) 12/14/22 02:03 Total Bilirubin 0.5 mg/dl (0.2-1.0) 12/14/22 02:03 AST 31 U/L (13-39) 12/14/22 02:03 ALT 32 U/L (7-52) 12/14/22 02:03 Alkaline Phosphatase 62 U/L (34-104) 12/14/22 02:03 Troponin I High Sens 24.2 pg/ml (0-20) H 12/14/22 02:03 Total Protein 6.7 gm/dl (6.0-8.3) 12/14/22 02:03 Albumin 3.9 gm/dl (3.4-5.0) 12/14/22 02:03 Globulin 2.8 gm/dl (2.5-4.0) 12/14/22 02:03 Albumin/Globulin Ratio 1.4 (0.9-2) 12/14/22 02:03 Lipase 22 U/L (11-82) 12/14/22 02:03 SARS-CoV-2, RNA, NAAT NEGATIVE (NEGATIVE) 12/14/22 03:[address] abdomen pelvis without contrast: Per stat rad There is mild right-sided hydroureteronephrosis extending to a 3 mm mid ureteral calculus. There are punctate nonobstructing left-sided intrarenal calculi. Additional chronic findings will be described on the final report. Code Status & VTE Plan VTE Prophylaxis Plan VTE Prophylaxis will be ordered: Yes PG Care Time/CCT Total # of Minutes Spent Total Time Spent with Patient: Total time spent is greater than 50% in coordination of care (as documented) at patient's floor/unit and/or counseling patient: Coding Level of Care Code 21725 INT INP/OBS CARE 2/55MIN Diagnoses Ureterolithiasis N20.1 Pulmonary emboli I26.99 Hypertension I10 HLD (hyperlipidemia) E78.5
[2022-12-14 04:57] LABS: Appearance Urine Turbid (Clear); Bacteria Urine Automated Negative (Negative); Blood Urine 3+ (Negative); Color Urine Orange; Glucose Urine UA Negative (Negative); Ketones Urine Negative (Negative); Leukocyte Esterase Urine 1+ (Negative); Nitrite Urine Negative (Negative); Protein Urine 2+ (Negative); RBC Urine Automated >30 /hpf (0-4); Specific Gravity Urine 1.022 (1.000-1.030); Urobilinogen Urine Negative (Negative)
[2022-12-14 05:08] LABS: Bilirubin Urine 1+ (Negative)
[2022-12-14] MEDS ORDERED: POLYETHYLENE (MIRALAX) 17 GM PACK PO PRN (05:33)
[2022-12-14] MEDS ORDERED: DOCUSATE SODIUM 100 MG CAP PO PRN (05:33)
[2022-12-14] MEDS ORDERED: LACTATED RINGER'S 1,000 ML IV SCH (05:33)
[2022-12-14] MEDS ORDERED: ONDANSETRON INJ 2 MG/ML 2 ML VIAL IV PRN (05:33)
[2022-12-14] MEDS ORDERED: MoRPHine SULFATE 2 MG/ML CARP IV PRN (05:33)
[2022-12-14] MEDS: MoRPHine SULFATE 4 MG/ML 1 ML CARP\\VIAL IV PRN (05:59)
--- NOTE | 2022-12-14 07:11 | XRay Report ---
XR chest 1V portable HISTORY: Chest pain, nonspecific COMPARISON: Chest 11/28/2022. FINDINGS: No pneumothorax. No pleural effusions. There are low lung volumes. The cardiac silhouette r emains enlarged. No new focal lung consolidations to suggest a pneumonia. No evidence for pulmonary e karla. Degenerative changes again noted within the shoulders. IMPRESSION: Stable mild cardiomegaly. ACT 112: Negative or not required by law. Electronically signed by: Freddy Ramos M.D. 12/14/2022 7:09 AM
--- NOTE | 2022-12-14 07:27 | CT Scan Report ---
ABDOMEN AND PELVIS CT WITHOUT CONTRAST CT DOSE: 982.79 mGy.cm HISTORY: Right flank pain TECHNIQUE: Multiaxial CT images of the abdomen and pelvis were performed without contrast. A dose lo wering technique was utilized adhering to the principles of ALARA. COMPARISON STUDY: Abdomen and pelvis CT 11/30/2022. FINDINGS: Mild dependent changes seen within the lung bases. No pneumoperitoneum. No pneumatosis. The re is a right total hip arthroplasty. No acute fractures identified. Mild bilateral gynecomastia. Cor onary artery calcifications again noted. The unenhanced liver, gallbladder, spleen, adrenal glands, a nd pancreas are unremarkable. No retroperitoneal lymphadenopathy. There is a 2 mm stone within the le ft kidney. Bilateral peripelvic renal cysts again noted. Moderate right perinephric edema has progres sed. There is mild right hydronephrosis secondary to an obstructing 5 mm stone within the proximal ri ght ureter on image 261. The bladder is unremarkable. Small fat-containing bilateral inguinal hernias are noted. Colonic diverticulosis. No evidence for acute diverticulitis. No bowel wall thickening or obstruction. There are few small appendicoliths versus residual barium within the normal appendix. IMPRESSION: 1. A 5 mm obstructing stone within the proximal right ureter resulting in mild right hydronephrosis. 2. Left-sided nephrolithiasis. 3. Colonic diverticulosis. No evidence for acute diverticulitis. ACT 112: Negative or not required by law. Electronically signed by: Freddy Ramos M.D. 12/14/2022 7:25 AM
[2022-12-14] MEDS ORDERED: HYDROmorphone INJ 0.5 MG/0.5 ML SYR IV STA (07:38)
--- NOTE | 2022-12-14 07:43 | Hospitalist Progress Note ---
Date of Service December 14, 2022 Assessment & Plan Admission and Anticipated Discharge Date Admission Date: December 14, 2022 Subjective BRIDGE NOTE, ADMIT AFTER MIDNIGHT eval in room, sitting up at edge of bed, pain improvement w/ dose of Dilaudid as morphine ineffective. Having hematuria w/ sediment passing at times. Seen by Urology and discussed conservative attempts to pass stone by itself given recent clots. He had hx stone in past but he notes it was about 3x larger and required intervention. Pain is right lower back w/ radiation to groin. He notes this pain is worse though than his pain w/ the larger stone. Discussed could be due to location. He is making urine, no BM but had BM yesterday he notes. He does endorse previous issues w/ moving his bowels in the hospital. +nausea but no vomiting but feels he is getting close at times. Antiemetics available prn. Denies any fever/chills. Does endorse some anxiety but no increased shortness of breath/chest pain since his tx/dx PE and actually was doing some light activity/exercise at the gym. Olmesartan ordered but will hold (was not already given) given slight bump in Cr and discussed repeating BMP this afternoon to monitor kidney function. Questions/concerns addressed at this time. He does have worries about his at home that he was helping (~1 week out from knee surgery) Seen again around 11:45 after having dose of toradol and he is up in recliner having some ice cream and states his pain is light night and day and he actually got about an hour of restful sleep. Results & Data Results & Data ([facility]) Vital Signs (Past 12 Hours) Vital Signs Temp Pulse Pulse Resp BP BP Pulse Ox 12/14/22 05:05 12/14/22 05:05 36.3 C L 20 162/82 H 94 12/14/22 03:32 57 L 16 129/73 94 12/14/22 03:21 98 12/14/22 01:26 36.8 C 69 18 217/119 H 98 O2 Del Method 12/14/22 05:05 Room Air 12/14/22 05:05 Room Air 12/14/22 03:32 Room Air 12/14/22 03:21 Room Air 12/14/22 01:26 Room Air Laboratory Results 12/14/22 12/14/22 12/14/22 Range/Units 04:07 03:29 02:03 WBC (4.8-10.8) K/ul RBC (4.70-6.10) M/uL Hgb (14.0-18.0) g/dl Hct (42.0-52.0) % MCV (80.0-100.0) fL MCH (25.0-34.0) pg MCHC (32.0-36.0) g/dL RDW Std Deviation (36.4-46.3) fL RDW Coeff of [place] (11.5-14.5) % Plt Count (130-400) K/uL MPV (9.4-12.4) fL Immature Gran % (Auto) % Neut % (Auto) % Lymph % (Auto) % [place] % (Auto) % Eos % (Auto) % Baso % (Auto) % Neut # (Auto) (1.40-6.50) K/uL Lymph # (Auto) (1.2-3.4) K/uL [place] # (Auto) (0.11-0.59) K/uL Eos # (Auto) (0-0.50) K/uL Baso # (Auto) (0-0.2) K/uL Immature Gran # (Auto) (0.01-0.20) K/uL PT (9.0-12.0) Seconds INR (0.9-1.1) APTT (21.0-31.0) Seconds PTT Ratio Sodium 139 (136-145) mmol/L Potassium 4.2 (3.5-5.1) mmol/L Chloride 105 (98-107) mmol/L Carbon Dioxide 29 (21-32) mmol/L Anion Gap 5 (3-11) BUN 21 (6-23) mg/dl Creatinine 1.37 (0.6-1.4) mg/dl Est Cr Clr Drug Dosing 50.9 ml/min Est GFR ( Amer) 56.9 ml/min Est GFR (Non-Af Amer) 49.1 ml/min BUN/Creatinine Ratio 15.3 (10-20) Glucose 124 H (70-99(Fasting)) mg/dl Calcium 9.1 (8.5-10.1) mg/dl Total Bilirubin 0.5 (0.2-1.0) mg/dl AST 31 (13-39) U/L ALT 32 (7-52) U/L Alkaline Phosphatase 62 (34-104) U/L Troponin I High Sens 24.2 H (0-20) pg/ml Total Protein 6.7 (6.0-8.3) gm/dl Albumin 3.9 (3.4-5.0) gm/dl Globulin 2.8 (2.5-4.0) gm/dl Albumin/Globulin Ratio 1.4 (0.9-2) Lipase 22 (11-82) U/L Urine Color [place] Urine Appearance Turbid A (Clear) Urine pH 5.0 (4.5-7.5) Ur Specific [place] 1.022 (1.000-1.030) Urine Protein 2+ H (Negative) Urine Glucose (UA) Negative (Negative) Urine Ketones Negative (Negative) Urine Blood 3+ H (Negative) Urine Nitrite Negative (Negative) Urine Bilirubin 1+ H (Negative) Urine Urobilinogen Negative (Negative) Ur Leukocyte Esterase 1+ H (Negative) Urine WBC (Auto) 5-10 H (0-5) /hpf Urine RBC (Auto) >30 H (0-4) /hpf U Hyaline Cast (Auto) 1-5 (0-5) /lpf U Epithel Cells (Auto) 5-10 H (0-5) /lpf Urine Bacteria (Auto) Negative (Negative) SARS-CoV-2, RNA, NAAT NEGATIVE (NEGATIVE) 12/14/22 12/14/22 Range/Units 02:03 02:03 WBC 7.79 (4.8-10.8) K/ul RBC 4.62 L (4.70-6.10) M/uL Hgb 15.4 (14.0-18.0) g/dl Hct 45.3 (42.0-52.0) % MCV 98.1 (80.0-100.0) fL MCH 33.3 (25.0-34.0) pg MCHC 34.0 (32.0-36.0) g/dL RDW Std Deviation 46.7 H (36.4-46.3) fL RDW Coeff of [place] 13.2 (11.5-14.5) % Plt Count 263 (130-400) K/uL MPV 10.2 (9.4-12.4) fL Immature Gran % (Auto) 0.5 % Neut % (Auto) 72.8 % Lymph % (Auto) 18.4 % Bledsoe % (Auto) 6.7 % Eos % (Auto) 1.3 % Baso % (Auto) 0.3 % Neut # (Auto) 5.68 (1.40-6.50) K/uL Lymph # (Auto) 1.43 (1.2-3.4) K/uL [place] # (Auto) 0.52 (0.11-0.59) K/uL Eos # (Auto) 0.10 (0-0.50) K/uL Baso # (Auto) 0.02 (0-0.2) K/uL Immature Gran # (Auto) 0.04 (0.01-0.20) K/uL PT 13.8 H (9.0-12.0) Seconds INR 1.3 H (0.9-1.1) APTT 43.0 H (21.0-31.0) Seconds PTT Ratio 1.6 Sodium (136-145) mmol/L Potassium (3.5-5.1) mmol/L Chloride (98-107) mmol/L Carbon Dioxide (21-32) mmol/L Anion Gap (3-11) BUN (6-23) mg/dl Creatinine (0.6-1.4) mg/dl Est Cr Clr Drug Dosing ml/min Est GFR ( Amer) ml/min Est GFR (Non-Af Amer) ml/min BUN/Creatinine Ratio (10-20) Glucose (70-99(Fasting)) mg/dl Calcium (8.5-10.1) mg/dl Total Bilirubin (0.2-1.0) mg/dl AST (13-39) U/L ALT (7-52) U/L Alkaline Phosphatase (34-104) U/L Troponin I High Sens (0-20) pg/ml Total Protein (6.0-8.3) gm/dl Albumin (3.4-5.0) gm/dl Globulin (2.5-4.0) gm/dl Albumin/Globulin Ratio (0.9-2) Lipase (11-82) U/L Urine Color Urine Appearance (Clear) Urine pH (4.5-7.5) Ur Specific [place] (1.000-1.030) Urine Protein (Negative) Urine Glucose (UA) (Negative) Urine Ketones (Negative) Urine Blood (Negative) Urine Nitrite (Negative) Urine Bilirubin (Negative) Urine Urobilinogen (Negative) Ur Leukocyte Esterase (Negative) Urine WBC (Auto) (0-5) /hpf Urine RBC (Auto) (0-4) /hpf U Hyaline Cast (Auto) (0-5) /lpf U Epithel Cells (Auto) (0-5) /lpf Urine Bacteria (Auto) (Negative) SARS-CoV-2, RNA, NAAT (NEGATIVE) PG Care Time/CCT Total # of Minutes Spent Total Time Spent with Patient: Total time spent is greater than 50% in coordination of care (as documented) at patient's floor/unit and/or counseling patient: Coding
[2022-12-14] MEDS ORDERED: OLMESARTAN MEDOXOMIL 20 MG TAB PO SCH (09:00)
--- NOTE | 2022-12-14 09:05 | Urology Consultation ---
Date of Consultation December 14, 2022 Assessment & Plan (1) Nephrolithiasis: Plan Obstructing right mid/proximal ureteral calculusmodest size3 to 4 mm Unfortunately his issues are complicated by bilateral pulmonary emboli and a lower extremity DVT For now I think an attempt at medical expulsion is bestcertainly if he decompensates or is incapable of tolerating a trial of passage we may have to perform a surgery He is on board with conservative management now Tamsulosin provided Pain improved with morphine but he has limited duration of relief Switch to oral pain medications and also consider a one-time dose of Toradol Creatinine is currently 1.3 his baseline is much lower I believe he could likely tolerate 1 or 2 doses of this medication History of Present Illness Attending Physician: Manjula Luu MD History of Present Illness 77-year-old gentleman admitted through the emergency room overnight secondary to a right proximal/mid ureteral calculus On CT which I personally reviewed and discussed I measured this to be 3 to 4 mm Report suggest he could be 5 He has hydronephrosis and some stranding around the kidney He would develop severe discomfort last night around 11:00 May be some mild discomfort earlier in the night than that No fevers or chills Complicating this is a recently diagnosed DVT and bilateral pulmonary emboli He is on anticoagulation with Xarelto now He is breathing adequately he has no chest pain and no change in his leg swelling Creatinine 1.37 White blood cell count 7.79 Has a history of kidney stones and required surgery about 5 or [address] Leija Allergies Allergy/AdvReac Type Severity Reaction Status Date / Time No Known Allergies Allergy Unknown Verified 12/14/22 02:16 Home Medications Medication Instructions Recorded Confirmed Type atorvastatin 40 mg tablet 40 mg PO QAM 12/10/21 12/14/22 History latanoprost 0.005 % eye drops 1 drp OPB HS 12/10/21 12/14/22 History timolol 0.5 % eye drops 1 drp OPL BID 12/10/21 12/14/22 History ammonium lactate 12 % lotion 1 applic topical BID 11/28/22 12/14/22 History olmesartan 20 mg tablet 20 mg PO DAILY 11/28/22 12/14/22 History rivaroxaban 15 mg tablet (Xarelto) 15 mg PO BID 21 days #42 tabs 11/30/22 12/14/22 Rx rivaroxaban 20 mg tablet (Xarelto) 20 mg PO DAILY #90 tabs 11/30/22 12/14/22 Rx Patient History Medical History DVT (deep venous thrombosis) Glaucoma HLD (hyperlipidemia) Hypertension Osteoarthritis Pulmonary emboli Surgical History History of arthroscopy of left knee x 2 History of cataract surgery left History of colonoscopy History of right hip replacement History of tonsillectomy Status post total left knee replacement Family History Other No family history of adverse response to anesthesia Social History Smoking Status: Never smoker Second Hand Exposure: No; Hx Alcohol Use: No Hx Substance Use: No Preferred Language: Macedonian Communication Ability: Effective River Tester Required: No Beliefs That Will Affect Care: None Current Living Situation: Spouse Feels Safe at Home: Yes Safety Concerns: Feels Safe At This Time Assistive Devices: Glasses Review of Systems Constitutional: no fever, no chills and no fatigue Eyes: no worsening vision Ear, Nose, Mouth, Throat: no facial pain and no pain with swallowing Respiratory: no cough and no dyspnea Cardiovascular: no chest pain and no palpitations Gastrointestinal: + abdominal pain, + nausea and + vomiting Musculoskeletal: no back pain Integumentary: no rash and no urticaria Neurologic: no gait abnormality and no unsteadiness Psychiatric: no behavioral changes and no depression Endocrine: no fatigue Physical Exam Physical Exam: Tender over the right flank Constitutional: well developed and well nourished Respiratory: no respiratory distress Cardiovascular: Extremities: no pedal edema Gastrointestinal (Abdomen): Inspection/Auscultation: abdomen normal to inspection Results & Data ([facility]) Vital Signs (Past 12 Hours) Vital Signs Temp Pulse Pulse Resp BP BP Pulse Ox 12/14/22 08:00 36.5 C 66 18 156/81 H 95 12/14/22 05:05 12/14/22 05:05 36.3 C L 20 162/82 H 94 12/14/22 03:32 57 L 16 129/73 94 12/14/22 03:21 98 12/14/22 01:26 36.8 C 69 18 217/119 H 98 O2 Del Method 12/14/22 08:00 Room Air 12/14/22 05:05 Room Air 12/14/22 05:05 Room Air 12/14/22 03:32 Room Air 12/14/22 03:21 Room Air 12/14/22 01:26 Room Air PG Care Time/CCT Total # of Minutes Spent Total Time Spent with Patient: Total time spent is greater than 50% in coordination of care (as documented) at patient's floor/unit and/or counseling patient: Coding Level of Care Code 32241 INT INP/OBS CARE 255MIN Diagnoses Nephrolithiasis N20.0
[2022-12-14] MEDS: KETOROLAC TROMETHAMINE 15 MG/ML VIAL IV PRN ×2 (09:40→19:25)
[2022-12-14] MEDS: RIVAROXABAN 15 MG TAB PO SCH ×2 (09:43→19:26)
[2022-12-14] MEDS: ATORVASTATIN 40 MG TAB PO SCH (09:44)
--- NOTE | 2022-12-14 12:38 | History & Physical Bridge Note ---
Date of Service December 14, 2022 History & Physical Bridge Note I have examined the patient, reviewed the History & Physical and in the interval since the performance of the History & Physical I have noted the following changes of clinical significance: no changes noted Eval in room, sitting up at edge of bed this morning, pain improvement w/ dose of Dilaudid as morphine ineffective. Having hematuria w/ sediment passing at times. Seen by Urology and discussed conservative attempts to pass stone by itself given recent clots. He had hx stone in past but he notes it was about 3x larger and required intervention. Pain is right lower back w/ radiation to groin. He notes this pain is worse though than his pain w/ the larger stone. Discussed could be due to location. He is making urine, no BM but had BM yesterday he notes. He does endorse previous issues w/ moving his bowels in the hospital. +nausea but no vomiting but feels he is getting close at times. Antiemetics available prn. Denies any fever/chills. Does endorse some anxiety but no increased shortness of breath/chest pain since his tx/dx PE and actually was doing some light activity/exercise at the gym. Olmesartan ordered but will hold (was not already given) given slight bump in Cr and discussed repeating BMP this afternoon to monitor kidney function. Questions/concerns addressed at this time. He does have worries about his at home that he was helping (~1 week out from knee surgery) A/P 1) Nephrolithiasis Hx stone requiring surgery 5-[address] Leija * Continue IVF x 1 L for dehydration/poor PO intake/VONDA * Urology consulted -- wanting to try conservative treatment/IVF/flomax/pain control and will make NPO after midnight incase still going pain/worsening kidney function but would like to hold off taking to OR if possible given recent dx PEs * Continue flomax 0.4mg HS * Measure I&O * Added urine strainer * Discussed w/ Urology and supervising provider and will order toradol 15mg IV x max 2 doses as patient w/ ongoing pain w/ morphine and was given a dose of dilaudid x 1 * Seen again around 11:45 after having dose of toradol and he is up in recliner having some ice cream and states his pain is light night and day and he actually got about an hour of restful sleep. 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 * Remains on Xarelto 15mg BID x 21 days, then 20mg daily. He denies any travel/trauma/family hx of clots. Mother did have miscarriage. No hypercoag work-up done prior to start AC last admission. Will ask CM navigator to get f/u in future for heme/onc follow up. Family hx colon ca in his mother but he states he is UTD on screening colonoscopy, no other personal/family hx malingnancy * 95% on RA Supervising Physician Co-Signing Physician Notes PA Supervision Note: I did not personally see or examine the patient today, but I verified all hayes points of ALISA Gooden's assessment and plan with the following exceptions/additions: consider PSA, urine cytology for malignancy given unprovoked DVT/PE recently if has cystoscopy, could visualize/check for malignancy. Unclear why he had DVT/PE otherwise
[2022-12-14 13:07] LABS: BUN Creatinine Ratio 16.2 (10-20); Calcium 8.8 mg/dl (8.5-10.1); Creatinine Clr Calc Pharmacy 54.4 ml/min; Est GFR (African American) 60.6 ml/min; Est GFR (Non-African American) 52.3 ml/min; Potassium 4.6 mmol/L (3.5-5.1)
[2022-12-14] MEDS ORDERED: SODIUM CHLORIDE 0.9% 1000ML 1,000 ML IV SCH (16:45)
[2022-12-14] MEDS: LATANOPROST 0.005% OP SOLN 2.5 ML BTL OPB SCH (19:25)
[2022-12-14] MEDS: TAMSULOSIN HCL 0.4 MG CAP PO SCH (19:26)
[2022-12-14] MEDS: MELATONIN 3 MG TAB PO PRN (21:16)
--- NOTE | 2022-12-15 06:04 | Electrocardiogram Report ---
Test Reason : Blood Pressure : / mmHG Vent. Rate : 068 BPM Atrial Rate : 068 BPM P-R Int : 222 ms QRS Dur : 082 ms QT Int : 422 ms P-R-T Axes : 057 -32 -25 degrees QTc Int : 448 ms Poor data quality, interpretation may be adversely affected Sinus rhythm with 1st degree A-V block Left axis deviation Minimal voltage criteria for LVH, may be normal variant Nonspecific ST and T wave abnormality T wave abnormality, consider inferior ischemia Abnormal ECG When compared with ECG of 29-NOV-2022 13:43, T wave inversion less evident in Inferior leads T wave inversion less evident in Anterior leads QT has shortened Confirmed by Ean Pagan ([id number]) on 12/15/2022 6:04:25 AM Referred By: REFERRED SELF Confirmed By:Ean Pagan
[2022-12-15 07:21] LABS: Hematocrit (blood only) 41.5 % (42.0-52.0); Hemoglobin 14.1 g/dl (14.0-18.0); Mean Corpuscular Hemoglobin 33.2 pg (25.0-34.0); Mean Corpuscular Volume 97.6 fL (80.0-100.0); Mean Platelet Volume 10.5 fL (9.4-12.4); Platelet Count 202 K/uL (130-400); RDW Coefficient of Variation 13.4 % (11.5-14.5); RDW Standard Deviation 48.1 fL (36.4-46.3); Red Blood Count 4.25 M/uL (4.70-6.10); White Blood Count 9.72 K/ul (4.8-10.8)
[2022-12-15 07:31] LABS: BUN Creatinine Ratio 12.6 (10-20); Calcium 8.9 mg/dl (8.5-10.1); Creatinine Clr Calc Pharmacy 46.9 ml/min; Est GFR (African American) 50.5 ml/min; Est GFR (Non-African American) 43.6 ml/min; Potassium 4.4 mmol/L (3.5-5.1)
[2022-12-15] MEDS: RIVAROXABAN 15 MG TAB PO SCH ×2 (08:24→20:26)
[2022-12-15] MEDS: ATORVASTATIN 40 MG TAB PO SCH (08:24)
--- NOTE | 2022-12-15 08:25 | Hospitalist Progress Note ---
Date of Service December 15, 2022 Assessment & Plan (1) Ureterolithiasis: Plan: 77-year-old male with history of hypertension, hyperlipidemia, recently diagnosed with extensive bilateral pulmonary emboli on Xarelto anticoagulation presenting with severe acute right flank pain. Found to have an obstructing ureterolithiasis 3 mm in size with associated right-sided hydroureteronephrosis. Hx stone requiring surgery 5-[address] Leija Has been getting continuous IVF, 2L thus far Flomax 0.4mg HS Measure I&O Strain urine Cr bumped to 1.51, normal baseline. Holding olmesartan -- messaged urology about intervention given VONDA/failure conservative treatment however no intervention planned at this time Will avoid further toradol -- got 2 doses 15mg IV yesterday for improvement in pain however would hold further. No increased bleeding and actually urine lightening up. Holding olmesartan as well Avoiding further IVF given edema and also avoiding lasix given VONDA. Elevated UEs, dopplers negaive NPO after midnight Repeating labs this afternoon to see if any worsening kidney function LL foot wound as below-- (2) VONDA (acute kidney injury): Plan: normal prior baseline Cr 1.37 on admit, on IVF, repeat 12/14 1.30 and continued IVF for additional liter Cr 1.51 on repeat, no hypotension UOP good 0.64ml/kg/hr -- continue to monitor Holding nephrotoxic agents, olmesartan on hold Repeat BMP this afternoon to eval for worsening renal function (3) Pulmonary emboli: Plan: Dx Nov 2022, unprovoked Family hx colon ca, but UTD on screening. Denied travel/trauma. Does get steroid injections frequently to shoulders ? Possible -- would avoid injections in future just in case and discussed this with patient 12/15 ? relation to ulcer on L heel -- site of DVT within L superficial femoral and popliteal veins needing outpt hypercoag workup --> remains on xarelto 15mg bid x 21 days, then 20mg daily after starting 12/21/22 PSA checked wnl 0.333 Checking urine cytology given hematuria and would rec f/u outpatient * cysto would be able to visualize lining as well * rec f/u urology for cysto even after inpatient stay for eval given unprovoked clots 95% on RA Incentive spirometer added given atelectasis, no overt edema (4) Hypertension: Plan: Typically on olmesartan daily, on hold given VONDA as above BP 124/74 this morning -- continue to monitor (5) HLD (hyperlipidemia): Plan: Continue atorvastatin 40 mg p.o. 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 No significant SOB but did check CXR, atelectasis no overt edema Avoiding giving any lasix given VONDA Does have some proteinuria on UA could contribute to swelling Urology consulted as above for obstructive nephrolithiasis Venous DOPPLER NEGATIVE Elevate extremities Monitor on repeat (7) Ulcer: Plan: LEFT heel, hx Maureen deformity of calcaneal bone (also hx achilles tendon rupture) uses crocs w/ insert cushion to prevent pain has callus to area wound rn seen today, instructions/dressing as outlined in note -- duoderm use to soften callus and need f/u difficult to assess pulses given DVT (doppler not working this am, unable to use) remains on xarelto no drainage for cx xray for further eval given 0.5cm x 0.5cm but 0.6cm deep consultation for ortho if needed Plan continued inpatient stay diet ordered as no OR currently, NPO at midnight in case of need for intervention xray for foot for ulcer LEFT heel, further orders pending eval Admission and Anticipated Discharge Date Admission Date: December 14, 2022 Supervising Physician Co-Signing Physician Notes PA Supervision Note: I did not personally see or examine the patient today, but I verified all hayes points of ALISA Gooden's assessment and plan with the following exceptions/additions: none Subjective eval this morning, seen by wound RN for concerns L heel -- prior Maureen deformity and Achilles tendon rupture on that side. Is painful when using regular shoes but has crocs w/ padding. Discussed getting xray/orthotics for offloading shoe as well. No significant erythema/warmth but difficult to assess given slightly reddened appearance w/ superficial DVT. Pulses also not obtained as doppler not working but does have some decreased sensation to his feet as well w/ monofilament testing. Covered by wound RN aquacell and duoderm for callus for softening and will need wound f/u. Breathing stable, but encouraged incentive spirometer given atelectasis. Making good urine, states much clearer in color (observed in urinal in bathroom, clearing up), no further frankly bloody. He did become tearful with repeat hospitalizations and not wanting to come back for the same problem. Pain currently 3/10 but states he feels it creeping up. To alert nursing of any increased hematuria or uncontrolled pain. Discussed if any fever/worsening kidney function would rec urology intervene sooner. His appetite is poor/fair and he would like to continue current clear liquid diet. No vomiting. Did have some increased upper extremity swelling today, pulses palpable and sensation intact to hands. Does have some forearm edema as well. no IV infiltration. US Doppler NEGATIVE for DVT. Discussed avoiding steroid injections in future as no clear reason for DVT/PE, unprovoked. He states he needs shoulder surgery but had been trying to avoid/conservative treatment. Physical Exam Physical Exam: General: WD elderly male sitting up in bed, NAD but tearful about inpatient stay and not wanting to come back with same issues HEENT: head normocephalic, atraumatic, mm moist, trachea midline without deviation Resp: faint crackles in the bases, no wheezing, on room air 95% CV: RRR, no significant m/r/g, patient does have some peripheral edema 1-2+ UE/LE, pulses palpable UE radial pulses w/ some fullness in forearms, chronic venous stasis appearance to LE, pitting edema to mid johnson GI: +BS, soft/NT : urinal in bathroom with clearer urine present, no millie blood noted, +Right CVA tenderness MSK/Neuro: moves all extremities, chronic R rotator cuff injury, no slurred speech/facial droop Psych: Alert/oriented x 3, cooperative but tearful about being in the hospital and going home in pain Results & Data Results & Data ([facility]) Vital Signs (Past 12 Hours) Vital Signs Temp Pulse Resp BP Pulse Ox O2 Del Method 12/14/22 21:39 36.7 C 70 18 131/67 94 Room Air Laboratory Results 12/15/22 12/15/22 12/15/22 Range/Units 11:41 06:31 06:31 WBC 9.72 (4.8-10.8) K/ul RBC 4.25 L (4.70-6.10) M/uL Hgb 14.1 (14.0-18.0) g/dl Hct 41.5 L (42.0-52.0) % MCV 97.6 (80.0-100.0) fL MCH 33.2 (25.0-34.0) pg MCHC 34.0 (32.0-36.0) g/dL RDW Std Deviation 48.1 H (36.4-46.3) fL RDW Coeff of Eloina 13.4 (11.5-14.5) % Plt Count 202 (130-400) K/uL MPV 10.5 (9.4-12.4) fL Sodium 138 (136-145) mmol/L Potassium 4.4 (3.5-5.1) mmol/L Chloride 105 (98-107) mmol/L Carbon Dioxide 29 (21-32) mmol/L Anion Gap 4 (3-11) BUN 19 (6-23) mg/dl Creatinine 1.51 H (0.6-1.4) mg/dl Est Cr Clr Drug Dosing 46.9 ml/min Est GFR ( Amer) 50.5 ml/min Est GFR (Non-Af Amer) 43.6 ml/min BUN/Creatinine Ratio 12.6 (10-20) Glucose 129 H (70-99(Fasting)) mg/dl Calcium 8.9 (8.5-10.1) mg/dl Total Creatine Kinase 82 (30-223) U/L Prostate Specific Ag (0-4) ng/ml 12/15/22 Range/Units 06:31 WBC (4.8-10.8) K/ul RBC (4.70-6.10) M/uL Hgb (14.0-18.0) g/dl Hct (42.0-52.0) % MCV (80.0-100.0) fL MCH (25.0-34.0) pg MCHC (32.0-36.0) g/dL RDW Std Deviation (36.4-46.3) fL RDW Coeff of Eloina (11.5-14.5) % Plt Count (130-400) K/uL MPV (9.4-12.4) fL Sodium (136-145) mmol/L Potassium (3.5-5.1) mmol/L Chloride (98-107) mmol/L Carbon Dioxide (21-32) mmol/L Anion Gap (3-11) BUN (6-23) mg/dl Creatinine (0.6-1.4) mg/dl Est Cr Clr Drug Dosing ml/min Est GFR ( Amer) ml/min Est GFR (Non-Af Amer) ml/min BUN/Creatinine Ratio (10-20) Glucose (70-99(Fasting)) mg/dl Calcium (8.5-10.1) mg/dl Total Creatine Kinase (30-223) U/L Prostate Specific Ag 0.333 (0-4) ng/ml Diagnostic Findings Venous Doppler Study 12/15/22 08:44 BILATERAL UPPER EXTREMITY VENOUS DOPPLER ULTRASOUND CLINICAL HISTORY: Upper extremity swelling, hx extensive DVT/PEs COMPARISON STUDY: No previous studies for comparison. TECHNIQUE: Sonography of the deep venous systems of both upper extremities was performed. FINDINGS: The bilateral internal jugular, subclavian, axillary, brachial, radial, ulnar, cephalic and basilic veins were patent. No deep venous thrombus was identified within the upper extremities. IMPRESSION: No deep venous thrombus within the upper extremities. ACT 112: Negative or not required by law. Electronically signed by: Huang Mckoy M.D. 12/15/2022 10:30 AM Chest X-Ray 12/15/22 08:45 XR chest 1V portable HISTORY: 77 years-old Male eval volume overload acute shortness of breath COMPARISON: Chest radiograph 12/14/2022 TECHNIQUE: AP view of the chest FINDINGS: Cardiac silhouette is enlarged. Unchanged mild right hemidiaphragmatic el evation. Mild blunting of the costophrenic angles with subsegmental bibasilar densities. No pneumothorax, large pleural effusion or overt pulmonary edema. Degenerative changes of the shoulders and spine. IMPRESSION: 1. Cardiomegaly without overt pulmonary edema. 2. Subsegmental mild bibasilar atelectasis. ACT 112: Negative or not required by law. The above report was generated using voice recognition software. It may contain grammatical, syntax or spelling errors. Electronically signed by: Denys Hsieh M.D. 12/15/2022 9:21 AM PG Care Time/CCT Total # of Minutes Spent Total Time Spent with Patient: Total time spent is greater than 50% in coordination of care (as documented) at patient's floor/unit and/or counseling patient: Coding Level of Care Code 16341 SUB INP/OBS CARE 3/50MIN Diagnoses Ureterolithiasis N20.1 VONDA (acute kidney injury) N17.9 Pulmonary emboli I26.99 Hypertension I10 HLD (hyperlipidemia) E78.5 Swelling of upper extremity M79.89 Ulcer
[2022-12-15] MEDS ORDERED: SODIUM CHLORIDE 0.9% 500 ML IV SCH (08:30)
--- NOTE | 2022-12-15 09:23 | XRay Report ---
XR chest 1V portable HISTORY: 77 years-old Male eval volume overload acute shortness of breath COMPARISON: Chest radiograph 12/14/2022 TECHNIQUE: AP view of the chest FINDINGS: Cardiac silhouette is enlarged. Unchanged mild right hemidiaphragmatic elevation. Mild blunting of th e costophrenic angles with subsegmental bibasilar densities. No pneumothorax, large pleural effusion or overt pulmonary edema. Degenerative changes of the shoulders and spine. IMPRESSION: 1. Cardiomegaly without overt pulmonary edema. 2. Subsegmental mild bibasilar atelectasis. ACT 112: Negative or not required by law. The above report was generated using voice recognition software. It may contain grammatical, syntax o r spelling errors. Electronically signed by: Denys Hsieh M.D. 12/15/2022 9:21 AM
--- NOTE | 2022-12-15 10:31 | Ultrasound Report ---
BILATERAL UPPER EXTREMITY VENOUS DOPPLER ULTRASOUND CLINICAL HISTORY: Upper extremity swelling, hx extensive DVT/PEs COMPARISON STUDY: No previous studies for comparison. TECHNIQUE: Sonography of the deep venous systems of both upper extremities was performed. FINDINGS: The bilateral internal jugular, subclavian, axillary, brachial, radial, ulnar, cephalic and basilic veins were patent. No deep venous thrombus was identified within the upper extremities. IMPRESSION: No deep venous thrombus within the upper extremities. ACT 112: Negative or not required by law. Electronically signed by: Huang Mckoy M.D. 12/15/2022 10:30 AM
--- NOTE | 2022-12-15 11:13 | Urology Progress Note ---
Date of Service December 15, 2022 Assessment & Plan (1) Ureterolithiasis: Plan Obstructing right mid/proximal ureteral calculusmodest size3 to 4 mm. Unfortunately his issues are complicated by bilateral pulmonary emboli and a lower extremity DVT. Remains afebrile, hemodynamically stable. Lab work reviewed - creatinine increased to 1.51, WBC 9.72, Hgb 14.1. Urine culture showing pin point growth, re-incubating - follow culture. Right flank discomfort has improved. Discussed options for management including medical expulsion. He is on board with conservative management now. Continue hydration, Tamsulosin and supportive care. If he decompensates or is incapable of tolerating a trial of passage we may have to perform a surgery. Make NPO at [place] to reassess in AM. will follow. Please contact our service urgently if patient develops fever >101F, intractable pain or nausea, as this will necessitate urgent surgical intervention. Admission and Anticipated Discharge Date Admission Date: December 14, 2022 Subjective Patient seen and examined at bedside this AM. He is awake, alert and standing up in room. He reports nasal congestion today, some epistaxis. Reports right flank pain has improved. Has not utilized pain medication since yesterday evening. No nausea or vomiting. No fever or chills. He is voiding spontaneously without difficulty. No dysuria or hematuria. Breathing has improved, currently on RA. Review of Systems Constitutional: as per Subjective / HPI Gastrointestinal: as per Subjective / HPI Genitourinary: + as per Subjective / HPI Physical Exam Constitutional: well developed and well nourished; no acute distress Respiratory: no respiratory distress and no labored breathing Cardiovascular: Extremities: + edema Gastrointestinal (Abdomen): Inspection/Auscultation: abdomen normal to inspection; abdomen not distended Neurologic: moves all extremities and awake Psychiatric: Orientation: alert and oriented x 3 Genitourinary: tender over right flank, mild Results & Data ([facility]) Vital Signs (Past 12 Hours) Vital Signs Temp Pulse Pulse Resp BP Pulse Ox O2 Del Method 12/15/22 08:40 36.6 C 81 81 18 124/74 95 Room Air PG Care Time/CCT Total # of Minutes Spent Total Time Spent with Patient: Total time spent is greater than 50% in coordination of care (as documented) at patient's floor/unit and/or counseling patient: Coding Level of Care Code 96467 SUB INP/OBS CARE 11/26MIN Diagnoses Ureterolithiasis N20.1
[2022-12-15 15:01] LABS: BUN Creatinine Ratio 10.6 (10-20); Calcium 9.4 mg/dl (8.5-10.1); Creatinine Clr Calc Pharmacy 44.2 ml/min; Est GFR (African American) 47.1 ml/min; Est GFR (Non-African American) 40.7 ml/min; Potassium 4.7 mmol/L (3.5-5.1)
[2022-12-15] MEDS: TIMOLOL MALEATE 0.5% OP SOLN 5 ML BTL OPL SCH ×2 (15:09→20:27)
[2022-12-15] MEDS ORDERED: cefTRIAXone SODIUM 1,000 MG in DEXTROSE 5% AD-VAN 50 ML IV SCH (16:30)
[2022-12-15] MEDS ORDERED: FLUTICASONE PROPIONATE NA SPR 16 GM BTL ONE (16:41)
[2022-12-15] MEDS ORDERED: bisacodyL 10 MG SUPP PR PRN (17:03)
[2022-12-15] MEDS: DOCUSATE SODIUM 100 MG CAP PO SCH ×2 (17:16→20:26)
[2022-12-15] MEDS: SENNA 8.6 MG TAB PO SCH (17:17)
--- NOTE | 2022-12-15 18:11 | XRay Report ---
XR foot LT min 3V routine CLINICAL HISTORY: L heel wound, eval TECHNIQUE: 3 views of the left foot were obtained. Comparison: Comparison is made to MRI ankle 05/31/2020 FINDINGS: No evidence of bony erosion is seen. Heparin deformity is incidentally noted. Soft tissue swelling is seen about the foot. IMPRESSION: No radiographic evidence of osteomyelitis. If clinical concern remains, MRI is a more sensitive modal ity. ACT 112: Negative or not required by law. Electronically signed by: Castro Servin M.D. 12/15/2022 6:09 PM
[2022-12-15] MEDS: TAMSULOSIN HCL 0.4 MG CAP PO SCH (20:25)
[2022-12-15] MEDS: LATANOPROST 0.005% OP SOLN 2.5 ML BTL OPB SCH (20:26)
[2022-12-15] MEDS: MELATONIN 3 MG TAB PO PRN (21:51)
[2022-12-15] MEDS: MoRPHine SULFATE 4 MG/ML 1 ML CARP\\VIAL IV PRN (21:51)
[2022-12-16 07:14] LABS: Basophils # (auto) 0.02 K/uL (0-0.2); Basophils % (auto) 0.2 %; Eosinophils # (auto) 0.09 K/uL (0-0.50); Eosinophils % (auto) 1.1 %; Hematocrit (blood only) 41.5 % (42.0-52.0); Immature Granulocytes # (auto) 0.04 K/uL (0.01-0.20); Immature Granulocytes % (auto) 0.5 %; Mean Corpuscular Hgb Conc 33.7 g/dL (32.0-36.0); Mean Corpuscular Volume 97.9 fL (80.0-100.0); Mean Platelet Volume 10.5 fL (9.4-12.4); Monocytes # (auto) 0.94 K/uL (0.11-0.59); Monocytes % (auto) 11.1 %; Neutrophils # (auto) 6.28 K/uL (1.40-6.50); Neutrophils % (auto) 74.1 %; Platelet Count 200 K/uL (130-400); RDW Coefficient of Variation 13.8 % (11.5-14.5); RDW Standard Deviation 49.4 fL (36.4-46.3); Red Blood Count 4.24 M/uL (4.70-6.10); White Blood Count 8.47 K/ul (4.8-10.8)
[2022-12-16 07:32] LABS: BUN Creatinine Ratio 10.1 (10-20); Calcium 9.3 mg/dl (8.5-10.1); Creatinine Clr Calc Pharmacy 47.5 ml/min; Est GFR (African American) 51.4 ml/min; Est GFR (Non-African American) 44.3 ml/min; Potassium 4.3 mmol/L (3.5-5.1)
--- NOTE | 2022-12-16 08:37 | Urology Progress Note ---
Agree with above. Date of Service December 16, 2022 Assessment & Plan (1) Ureterolithiasis: Plan Obstructing right mid/proximal ureteral calculusmodest size3 to 4 mm. Unfortunately his issues are complicated by bilateral pulmonary emboli and a lower extremity DVT. Remains afebrile, hemodynamically stable. Lab work reviewed - creatinine 1.49, WBC 8.47, Hgb 14.0. Urine culture showing pin point growth, re-incubating - follow culture. Currently on IV Ceftriaxone. Right flank discomfort has been manageable. Ordered KUB this AM for stone assessment - stone is visible and appears to have migrated distally. No acute intervention today. Recommend continue with conservative management with trial of passage. Continue supportive care, hydration and Flomax. Okay to dc from perspective when medically stable. Will arrange outpatient follow-up with our service. Admission and Anticipated Discharge Date Admission Date: December 15, 2022 Subjective Patient seen and examined at bedside this morning. Continues to have intermittent right flank discomfort. Currently rated 5 out of 10. Voiding without difficulty. No dysuria, reports intermittent hematuria/dark urine. No nausea or vomiting. No fever or chills. Review of Systems Constitutional: as per Subjective / HPI Gastrointestinal: as per Subjective / HPI Genitourinary: + as per Subjective / HPI Physical Exam Constitutional: well developed and well nourished; no acute distress Respiratory: normal respiratory effort; no respiratory distress and no labored breathing Cardiovascular: Extremities: no pedal edema Gastrointestinal (Abdomen): Inspection/Auscultation: abdomen normal to inspection; abdomen not distended Musculoskeletal: Head/Neck/Chest: normocephalic and head atraumatic Neurologic: moves all extremities and awake Psychiatric: Orientation: alert and oriented x 3 Genitourinary: mild tenderness over right flank Results & Data ([facility]) Vital Signs (Past 12 Hours) Vital Signs Temp Pulse Resp BP BP Pulse Ox O2 Del Method 12/16/22 07:31 36.8 C 79 16 158/83 H 94 Room Air 12/15/22 22:56 36.9 C 73 18 158/76 H 93 Room Air PG Care Time/CCT Total # of Minutes Spent Total Time Spent with Patient: Total time spent is greater than 50% in coordination of care (as documented) at patient's floor/unit and/or counseling patient: Coding Level of Care Code 23894 SUB INP/OBS CARE 1/25MIN Diagnoses Ureterolithiasis N20.1
[2022-12-16] MEDS: RIVAROXABAN 15 MG TAB PO SCH ×2 (09:09→21:18)
[2022-12-16] MEDS: TIMOLOL MALEATE 0.5% OP SOLN 5 ML BTL OPL SCH ×2 (09:09→21:18)
[2022-12-16] MEDS: ATORVASTATIN 40 MG TAB PO SCH (09:09)
[2022-12-16] MEDS: DOCUSATE SODIUM 100 MG CAP PO SCH ×2 (09:09→21:19)
--- NOTE | 2022-12-16 09:10 | XRay Report ---
XR KUB/Abdomen 1 view CLINICAL HISTORY: ureteral stone TECHNIQUE: 1 view of the abdomen was obtained. Comparison: Comparison is made to abdomen radiograph 11/08/[address] abdomen pelvis 12/14/2022 FINDINGS: Multiple calcific densities are seen. Several likely represent hyperdense material within diverticula . A few omental calcifications are noted. In addition, there aren't calcific densities along the expe cted course of the right ureter. Degenerative changes are seen in the visualized skeleton. Right hip arthroplasty is seen. The bowel gas pattern is nonobstructive. A moderate amount of stool is noted wi thin the large bowel. IMPRESSION: Multiple calcific densities are seen. A few lie along the course of the right ureter, continued urete rolithiasis cannot be excluded. If further evaluation is desired, noncontrast CT can be performed. ACT 112: Negative or not required by law. Electronically signed by: Castro Servin M.D. 12/16/2022 9:07 AM
[2022-12-16] MEDS: MoRPHine SULFATE 4 MG/ML 1 ML CARP\\VIAL IV PRN ×2 (12:34→16:16)
[2022-12-16] MEDS: SODIUM CHLORIDE 0.9% 1000ML 1,000 ML IV SCH (12:34)
[2022-12-16] MEDS: oxyCODONE HCL IR 5 MG TAB (IMMEDIATE RELEASE) PO PRN ×2 (13:43→21:25)
--- NOTE | 2022-12-16 14:10 | Orthopedic Consultation ---
Date of Service December 16, 2022 Assessment & Plan (1) Heel ulcer: He was seen and examined by Dr. Guzman today as well. Recommend nonoperative management with wound care at this time. He should avoid pressure on his heel. He can eat/drink today from an orthopedic standpoint if okay with urology/hospitalist services. History of Present Illness Reason for Consultation: . Requesting Physician: . Attending Physician: Martin Owens . Isaac is a 77 year old patient admitted for kidney stones, and has had a ulcer on his left heel for about the last 3 weeks. He was recently diagnosed with PE's just 3 about 3 weeks ago as well. He has not had any treatment really for the heel ulcer until this hospitalization. Wound care did see him and he has a dressing on. He has a h/o nonoperative management of a left achilles tendon injury about 2 years ago. His had recent total knee arthroplasty. Allergies Allergy/AdvReac Type Severity Reaction Status Date / Time No Known Allergies Allergy Unknown Verified 12/14/22 02:16 Home Medications Medication Instructions Recorded Confirmed Type atorvastatin 40 mg tablet 40 mg PO QAM 12/10/21 12/14/22 History latanoprost 0.005 % eye drops 1 drp OPB HS 12/10/21 12/14/22 History timolol 0.5 % eye drops 1 drp OPL BID 12/10/21 12/14/22 History ammonium lactate 12 % lotion 1 applic topical BID 11/28/22 12/14/22 History olmesartan 20 mg tablet 20 mg PO DAILY 11/28/22 12/14/22 History rivaroxaban 15 mg tablet (Xarelto) 15 mg PO BID 21 days #42 tabs 11/30/22 12/14/22 Rx rivaroxaban 20 mg tablet (Xarelto) 20 mg PO DAILY #90 tabs 11/30/22 12/14/22 Rx Past Med/Surg History Medical History DVT (deep venous thrombosis) Glaucoma HLD (hyperlipidemia) Hypertension Osteoarthritis Pulmonary emboli Surgical History History of arthroscopy of left knee x 2 History of cataract surgery left History of colonoscopy History of right hip replacement History of tonsillectomy Status post total left knee replacement Family History Other No family history of adverse response to anesthesia Social History Smoking Status: Never smoker Second Hand Exposure: No; Hx Alcohol Use: No Hx Substance Use: No Preferred Language: Uzbek Communication Ability: Effective 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 Physical Exam .left foot/ankle: dressing intact to left heel. This was not removed today by us. There is no erythema around the dressing. Mild edema of his lower extremity. Skin intact over the achilles. He can dorsiflex and plantarflex. NVI. wound images reviewed in the chart and show a posterior heel wound with surrounding callous, no purulence. Results & Data Results & Data Laboratory Results . Diagnostic Findings . PG Care Time/CCT Total # of Minutes Spent Total Time Spent with Patient: Total time spent is greater than 50% in coordination of care (as documented) at patient's floor/unit and/or counseling patient: Coding Level of Care Code INP/OBS CONSULT LVL 3, 45 MIN Diagnoses Heel ulcer L97.409
[2022-12-16] MEDS: SENNA 8.6 MG TAB PO SCH (16:14)
[2022-12-16] MEDS: cefTRIAXone SODIUM 2,000 MG in DEXTROSE 5% AD-VAN 50 ML IV SCH (17:21)
[2022-12-16] MEDS ORDERED: bisacodyL 10 MG SUPP PR STA (17:42)
--- NOTE | 2022-12-16 17:44 | Hospitalist Progress Note ---
Date of Service December 16, 2022 Assessment & Plan (1) Ureterolithiasis: Plan: obstructing right-sided ureteral kidney stone, 4-5mm in size. associated right-sided hydroureteronephrosis. Hx stone requiring surgery 5-[address] Leija Cont IV fluids (reordered) Cont Flomax 0.4mg HS Measure I&O Strain urine Cr 1.49 today - down from 1.6 yesterday urology input appreciated no surgical intervention at this time - stone may have moved a bit more based on KUB today BMP am (2) VONDA (acute kidney injury): Plan: Peak Cr 1.6 now 1.49 today bmp am likely obstructive in nature from stone (3) Pulmonary emboli: Plan: Dx Nov 2022, unprovoked - with LLE DVT Remains on xarelto 15mg bid x 21 days until 12/21/22 then 20mg daily after starting 12/21/22 PSA checked wnl 0.333 urine cytology - negative recent CT chest/abd/pelvis without any mass lesion EGD/colon as outpatient? heme referral for hypercoagulable w/u? (4) Hypertension: Plan: Typically on olmesartan daily but on hold given VONDA (5) HLD (hyperlipidemia): Plan: Continue atorvastatin 40 mg p.o. every morning (6) Swelling of upper extremity: Plan: Venous DOPPLER NEGATIVE Elevate extremities (7) Ulcer: Plan: LEFT heel, hx Maureen deformity of calcaneal bone (also hx achilles tendon rupture) wound nurse recs appreciated --> duoderm to soften callus and need f/u with outpatient wound care center ortho consult appreciated cont orthotic shoe (8) Constipation: Plan: dulcolax suppos x 1 tonight if no response then lactulose x 1 tomorrow along with senna/colace limit narcotic usage (9) DVT (deep venous thrombosis): Plan: LLE - recent dx - as above xarelto Admission and Anticipated Discharge Date Admission Date: December 15, 2022 Subjective ongoing abd pain/discomfort although improved from admission no bowel movement since last Thursday appetite has been poor but no vomiting anxious - he reports his is recovering from TKR at home and he is supposed to be the one caring for her however, they were able to get their son to go over to help with her care urology has seen - no plans for cysto/stent at this time Review of Systems Review of Systems: gen - no fevers cv - no cp pulm - no dyspnea musculo - chronic L heel wound; states it is hard to walk because of the orthotic device he has Physical Exam Physical Exam: gen - pleasant but anxious; NAD mouth - MMM neck - no JVD heart - RRR, s1 s2, no murmur lungs - CTA b/l abd - distended and tympanic to percussion, mildly tender R side of abd, BS+ ext - no edema, pulses 2+ b/l musculo - left foot in walking orthotic shoe Results & Data Results & Data ([facility]) Vital Signs (Past 12 Hours) Vital Signs Temp Pulse Resp BP Pulse Ox O2 Del Method 12/16/22 15:58 36.9 C 100 H 16 136/79 93 Room Air 12/16/22 07:31 36.8 C 79 16 158/83 H 94 Room Air Laboratory Results Laboratory Results - last 48 hr 12/15/22 12/15/22 12/16/22 11:41 14:26 06:39 WBC RBC Hgb Hct MCV MCH MCHC RDW Std Deviation RDW Coeff of Eloina Plt Count MPV Immature Gran % (Auto) Neut % (Auto) Lymph % (Auto) Oliver % (Auto) Eos % (Auto) Baso % (Auto) Neut # (Auto) Lymph # (Auto) Oliver # (Auto) Eos # (Auto) Baso # (Auto) Immature Gran # (Auto) Sodium 140 140 Potassium 4.7 4.3 Chloride 104 105 Carbon Dioxide 30 33 H Anion Gap 6 2 L BUN 17 15 Creatinine 1.60 H 1.49 H Est Cr Clr Drug Dosing 44.2 47.5 Est GFR ( Amer) 47.1 51.4 Est GFR (Non-Af Amer) 40.7 44.3 BUN/Creatinine Ratio 10.6 10.1 Glucose 161 H 118 H Calcium 9.4 9.3 Total Creatine Kinase 82 12/16/22 06:39 WBC 8.47 RBC 4.24 L Hgb 14.0 Hct 41.5 L MCV 97.9 MCH 33.0 MCHC 33.7 RDW Std Deviation 49.4 H RDW Coeff of Eloina 13.8 Plt Count 200 MPV 10.5 Immature Gran % (Auto) 0.5 Neut % (Auto) 74.1 Lymph % (Auto) 13.0 Oliver % (Auto) 11.1 Eos % (Auto) 1.1 Baso % (Auto) 0.2 Neut # (Auto) 6.28 Lymph # (Auto) 1.10 L Oliver # (Auto) 0.94 H Eos # (Auto) 0.09 Baso # (Auto) 0.02 Immature Gran # (Auto) 0.04 Sodium Potassium Chloride Carbon Dioxide Anion Gap BUN Creatinine Est Cr Clr Drug Dosing Est GFR ( Amer) Est GFR (Non-Af Amer) BUN/Creatinine Ratio Glucose Calcium Total Creatine Kinase PG Care Time/CCT Total # of Minutes Spent Total Time Spent with Patient: Total time spent is greater than 50% in coordination of care (as documented) at patient's floor/unit and/or counseling patient: Coding Level of Care Code 62210 SUB INP/OBS CARE 2/35MIN Diagnoses Ureterolithiasis N20.1 VONDA (acute kidney injury) N17.9 Pulmonary emboli I26.99 Hypertension I10 HLD (hyperlipidemia) E78.5 Swelling of upper extremity M79.89 Ulcer Constipation K59.00 DVT (deep venous thrombosis) I82.409
[2022-12-16] MEDS: LATANOPROST 0.005% OP SOLN 2.5 ML BTL OPB SCH (21:18)
[2022-12-16] MEDS: TAMSULOSIN HCL 0.4 MG CAP PO SCH (21:18)
[2022-12-16] MEDS: MELATONIN 3 MG TAB PO PRN (21:27)
[2022-12-17] MEDS: SODIUM CHLORIDE 0.9% 1000ML 1,000 ML IV SCH ×3 (00:32→20:40)
[2022-12-17] MEDS: MoRPHine SULFATE 4 MG/ML 1 ML CARP\\VIAL IV PRN (07:25)
[2022-12-17 08:25] LABS: Calcium 8.3 mg/dl (8.5-10.1); Creatinine Clr Calc Pharmacy 54.9 ml/min; Est GFR (African American) 61.1 ml/min; Est GFR (Non-African American) 52.8 ml/min; Potassium 3.9 mmol/L (3.5-5.1)
[2022-12-17] MEDS: ACETAMINOPHEN 500 MG TAB PO PRN ×2 (08:54→20:45)
[2022-12-17] MEDS: TIMOLOL MALEATE 0.5% OP SOLN 5 ML BTL OPL SCH ×2 (08:55→20:38)
[2022-12-17] MEDS: ATORVASTATIN 40 MG TAB PO SCH (08:56)
[2022-12-17] MEDS: RIVAROXABAN 15 MG TAB PO SCH ×2 (08:56→20:39)
[2022-12-17] MEDS: DOCUSATE SODIUM 100 MG CAP PO SCH ×2 (08:56→20:39)
[2022-12-17] MEDS: SENNA 8.6 MG TAB PO SCH ×2 (09:39→20:39)
[2022-12-17] MEDS ORDERED: LACTULOSE SYRUP 20 GM/30 ML UDC PO ONE (10:15)
[2022-12-17] MEDS ORDERED: FAMOTIDINE 20 MG TAB PO ONE (14:45)
[2022-12-17] MEDS ORDERED: SUCRALFATE 1 GM/10 ML UDC PO ONE (14:45)
[2022-12-17] MEDS: cefTRIAXone SODIUM 2,000 MG in DEXTROSE 5% AD-VAN 50 ML IV SCH (16:00)
--- NOTE | 2022-12-17 19:39 | Hospitalist Progress Note ---
Date of Service December 17, 2022 Assessment & Plan (1) Ureterolithiasis: Plan: obstructing right-sided ureteral kidney stone, 4-5mm in size. associated right-sided hydroureteronephrosis. Hx stone requiring surgery 5-[address] Leija Cont IV fluids but lower rate to 50cc/hr since eating and drinking are better Cont Flomax 0.4mg HS Measure I&O Strain urine Cr 1.2 today - down from peak of 1.6 this week urology input appreciated no surgical intervention at this time BMP am Repeat KUB x-ray in am to assess stone position if still present try to limit narcotics for pain due to severe constipation (2) VONDA (acute kidney injury): Plan: Peak Cr 1.6 now 1.2 today bmp am likely obstructive in nature from stone (3) Pulmonary emboli: Plan: Dx Nov 2022, unprovoked - with LLE DVT Remains on xarelto 15mg bid x 21 days until 12/21/22 then 20mg daily after starting 12/21/22 PSA checked --bwnl 0.333 urine cytology - negative recent CT chest/abd/pelvis without any mass lesion EGD/colon as outpatient? heme referral for hypercoagulable w/u (4) Hypertension: Plan: Typically on olmesartan daily but on hold given VONDA BPs reasonable at this time w/o it (5) HLD (hyperlipidemia): Plan: Continue atorvastatin 40 mg p.o. every morning (6) Swelling of upper extremity: Plan: Venous DOPPLER NEGATIVE (7) Ulcer: Plan: LEFT heel, hx Maureen deformity of calcaneal bone (also hx achilles tendon rupture) wound nurse recs appreciated --> duoderm to soften callus and need f/u with outpatient wound care center ortho consult appreciated cont orthotic shoe appreciate orthotics consultation (8) Constipation: Plan: opiate-induced s/p lactulose this am s/p suppos this evening add miralax BID increase senna to BID dosing if no response to above consider relistor or fleets or other (9) DVT (deep venous thrombosis): Plan: LLE - recent dx - as above xarelto Plan updated pt's by phone this evening PT consult pending hopefully home next 1-2 days Admission and Anticipated Discharge Date Admission Date: December 15, 2022 Subjective patient's appetite is much improved today no nausea or GI intolerance did have small BM last pm with use of suppository however - still feels very constipated took lactulose this am - no BM with such during my visit he reported he used a suppository again about an hour ago and still has not had a BM continues with occasional R flank pain -- no radiation -- but pain is better in comparison to admission has not seen any stone with straining the urine he is able to ambulate to bathroom without difficulty Review of Systems Review of Systems: gen - no fevers cv - no chest pain pulm - no cough or dyspnea GI - mild R flank pain intermittent; mild lower abdominal discomfort; ongoing constipation Physical Exam Physical Exam: gen - pleasant; NAD; sitting in chair comfortably mouth - MMM neck - no JVD heart - RRR, s1 s2, no murmur lungs - CTA b/l abd - still distended and mildly tympanic to percussion, no flank tenderness today, BS+ ext - no edema on right; <1+ edema on left (mainly the foot and ankle); pulses 2+ b/l musculo - left foot in walking orthotic shoe; I removed this; foot and heel w/o cellulitis; I left the dressing on heel intact (duoderm type dressing present) Results & Data Results & Data ([facility]) Vital Signs (Past 12 Hours) Vital Signs Temp Pulse Resp BP Pulse Ox O2 Del Method 12/17/22 16:14 36.6 C 72 18 132/77 97 Room Air Laboratory Results Laboratory Results - last 24 hr 12/17/22 06:49 Sodium 139 Potassium 3.9 Chloride 104 Carbon Dioxide 31 Anion Gap 4 BUN 18 Creatinine 1.29 Est Cr Clr Drug Dosing 54.9 Est GFR ( Amer) 61.1 Est GFR (Non-Af Amer) 52.8 BUN/Creatinine Ratio 14.0 Glucose 111 H Calcium 8.3 L PG Care Time/CCT Total # of Minutes Spent Total Time Spent with Patient: Total time spent is greater than 50% in coordination of care (as documented) at patient's floor/unit and/or counseling patient: Coding Level of Care Code 12502 SUB INP/OBS CARE 3/50MIN Diagnoses Ureterolithiasis N20.1 VONDA (acute kidney injury) N17.9 Pulmonary emboli I26.99 Hypertension I10 HLD (hyperlipidemia) E78.5 Swelling of upper extremity M79.89 Ulcer Constipation K59.00 DVT (deep venous thrombosis) I82.409
[2022-12-17] MEDS: POLYETHYLENE (MIRALAX) 17 GM PACK PO SCH (20:37)
[2022-12-17] MEDS: TAMSULOSIN HCL 0.4 MG CAP PO SCH (20:39)
[2022-12-17] MEDS: LATANOPROST 0.005% OP SOLN 2.5 ML BTL OPB SCH (20:40)
[2022-12-18 06:20] LABS: Basophils # (auto) 0.02 K/uL (0-0.2); Basophils % (auto) 0.2 %; Eosinophils # (auto) 0.16 K/uL (0-0.50); Eosinophils % (auto) 1.8 %; Hematocrit (blood only) 37.2 % (42.0-52.0); Hemoglobin 12.6 g/dl (14.0-18.0); Immature Granulocytes # (auto) 0.04 K/uL (0.01-0.20); Immature Granulocytes % (auto) 0.5 %; Lymphocytes # (auto) 0.96 K/uL (1.2-3.4); Lymphocytes % (auto) 10.8 %; Mean Corpuscular Hemoglobin 33.4 pg (25.0-34.0); Mean Corpuscular Hgb Conc 33.9 g/dL (32.0-36.0); Mean Corpuscular Volume 98.7 fL (80.0-100.0); Mean Platelet Volume 10.4 fL (9.4-12.4); Monocytes # (auto) 0.92 K/uL (0.11-0.59); Monocytes % (auto) 10.4 %; Neutrophils # (auto) 6.77 K/uL (1.40-6.50); Neutrophils % (auto) 76.3 %; Platelet Count 184 K/uL (130-400); RDW Coefficient of Variation 13.6 % (11.5-14.5); RDW Standard Deviation 49.1 fL (36.4-46.3); Red Blood Count 3.77 M/uL (4.70-6.10); White Blood Count 8.87 K/ul (4.8-10.8)
[2022-12-18 06:32] LABS: BUN Creatinine Ratio 11.5 (10-20); Calcium 8.3 mg/dl (8.5-10.1); Creatinine Clr Calc Pharmacy 45.4 ml/min; Est GFR (African American) 48.6 ml/min; Est GFR (Non-African American) 41.9 ml/min; Magnesium 1.8 mg/dl (1.7-2.4); Potassium 3.9 mmol/L (3.5-5.1)
[2022-12-18] MEDS: ACETAMINOPHEN 500 MG TAB PO PRN (09:16)
[2022-12-18] MEDS: SENNA 8.6 MG TAB PO SCH (09:17)
[2022-12-18] MEDS: POLYETHYLENE (MIRALAX) 17 GM PACK PO SCH (09:17)
[2022-12-18] MEDS: ATORVASTATIN 40 MG TAB PO SCH (09:17)
[2022-12-18] MEDS: TIMOLOL MALEATE 0.5% OP SOLN 5 ML BTL OPL SCH ×2 (09:18→20:47)
[2022-12-18] MEDS: RIVAROXABAN 15 MG TAB PO SCH ×2 (09:18→20:48)
[2022-12-18] MEDS: DOCUSATE SODIUM 100 MG CAP PO SCH (09:18)
--- NOTE | 2022-12-18 09:23 | XRay Report ---
KUB CLINICAL HISTORY: Nephrolithiasis. FINDINGS: 2 AP supine abdominal radiographs are compared to study dated 12/16/2022 and correlated with abdominal CT dated 12/14/2022. There is a nonobstructed abdominal bowel gas pattern. Moderate fecal r etention is seen throughout the colon. Numerous radiodensities projecting over the abdomen correspond to contrast retained within colonic diverticula. The patient's right ureteral stone is not clearly s een. No calcifications are identified projecting over either kidney. Pelvic phleboliths are again not ed. The skeletal structures are osteopenic and appear intact. There is moderate lumbosacral spondylos is. A right hip arthroplasty is in place. Arthritic change is noted in the left hip. IMPRESSION: 1. There is no radiographic evidence of nephrolithiasis. Specifically, the known right ureteral stone seen by CT on 12/14/2022 is not visualized. 2. Numerous radiodensities projecting over the abdomen correspond to retained barium contrast within colonic diverticula. 3. No bowel obstruction. Electronically signed by: Darci Jacobson M.D. 12/18/2022 9:21 AM
[2022-12-18] MEDS: ADVANCED PROBIOTIC 1250 MG CAPSULE PO SCH (09:33)
[2022-12-18] MEDS: CEFDINIR 300 MG CAP PO SCH ×2 (09:33→20:48)
[2022-12-18] MEDS ORDERED: MINERAL OIL ENEMA 133 ML BTL PR ONE (14:15)
[2022-12-18] MEDS ORDERED: cefTRIAXone SODIUM 2,000 MG in DEXTROSE 5% 50 ML IV SCH (17:00)
[2022-12-18] MEDS: SODIUM CHLORIDE 0.9% 1000ML 1,000 ML IV SCH (17:16)
[2022-12-18] MEDS ORDERED: LAVAGE SOLUTION 4000ML PO SCH (17:45)
--- NOTE | 2022-12-18 18:43 | Hospitalist Progress Note ---
Date of Service December 18, 2022 Assessment & Plan (1) Ureterolithiasis: Plan: obstructing right-sided ureteral kidney stone, 4-5mm in size, with associated right-sided hydroureteronephrosis. right flank pain/right sided abdominal pain is resolved. KUB today - can't readily see the stone, but it certainly may still be present - perhaps at [facility]?? Cont Flomax 0.4mg HS Cont to Strain urine Cr 1.5 despite IV fluids overnight - uncertain why it pauly ; will repeat BMP in am urology input appreciated no surgical intervention at this time (2) Constipation: Plan: opiate-induced ongoing and severe no good BM since last Thursday (only had tiny BM 2 days ago with a dulcolax suppos) ongoing distension/constipation despite NUMEROUS agents tried including an enema today hold miralax BID hold senna BID patient willing to do a "bowel prep" with [employer] - plan 8oz of such every 1-2 hours until stooling re-eval tomorrow (3) VONDA (acute kidney injury): Plan: Peak Cr 1.6 was 1.2, now back to 1.5 again today recheck BMP in am if Cr rises further - will ask urology to see again, consider re-imaging, etc (4) Pulmonary emboli: Plan: Dx Nov 2022, unprovoked - with LLE DVT Remains on xarelto 15mg bid x 21 days until 12/21/22 then 20mg daily after starting 12/21/22 PSA-- 0.333 urine cytology - negative recent CT chest/abd/pelvis without any mass lesion EGD/colon as outpatient? sees [facility] locally; last colonoscopy about 5 years ago?? heme referral for hypercoagulable w/u (5) Hypertension: Plan: Typically on olmesartan daily but cont to hold given VONDA BPs still reasonable at this time without the ARB (6) HLD (hyperlipidemia): Plan: Continue atorvastatin 40 mg p.o. every morning (7) Swelling of upper extremity: Plan: Venous DOPPLER NEGATIVE (8) Ulcer: Plan: LEFT heel, hx Maureen deformity of calcaneal bone (also hx achilles tendon rupture) wound nurse recs appreciated --> duoderm to soften callus and need f/u with outpatient wound care center ortho consult appreciated cont orthotic shoe appreciate orthotics consultation (9) DVT (deep venous thrombosis): Plan: LLE - recent dx - as above xarelto Plan updated pt's by phone yesterday evening updated pt's son at bedside today PT consult completed today - ok for home with family hopefully home tomorrow if constipation is resolved & creatinine is stable Admission and Anticipated Discharge Date Admission Date: December 15, 2022 Subjective patient continues to struggle with severe constipation tried a suppository yesterday evening w/o success tried an enema today without success he is bloated but fortunately no vomiting his appetite is off a bit because of the above issues right flank pain has resolved occasional hematuria but mild at best voiding without difficulty still no stone seen with straining the urine son at bedside Review of Systems Review of Systems: gen - no fevers or chills cv - no chest pain pulm - no dyspnea GI - no pain despite the severe constipation Physical Exam Physical Exam: gen - NAD, comfortable, awake & alert mouth - MMM neck - no JVD heart - RRR, s1 s2, no murmur lungs - CTA b/l abd - ongoing distension; BS+; NT ext - <1+ edema b/l (shins and ankles); pulses 2+ b/l musculo - left foot in walking orthotic shoe Results & Data Results & Data ([facility]) Vital Signs (Past 12 Hours) Vital Signs Temp Pulse Resp BP BP Pulse Ox O2 Del Method 12/18/22 18:18 36.3 C L 77 18 153/87 H 99 Room Air 12/18/22 06:59 Room Air 12/18/22 06:56 37 C 78 18 151/86 H 97 Room Air Laboratory Results Laboratory Results - last 24 hr 12/18/22 12/18/22 05:34 05:34 WBC 8.87 RBC 3.77 L Hgb 12.6 L Hct 37.2 L MCV 98.7 MCH 33.4 MCHC 33.9 RDW Std Deviation 49.1 H RDW Coeff of Eloina 13.6 Plt Count 184 MPV 10.4 Immature Gran % (Auto) 0.5 Neut % (Auto) 76.3 Lymph % (Auto) 10.8 [place] % (Auto) 10.4 Eos % (Auto) 1.8 Baso % (Auto) 0.2 Neut # (Auto) 6.77 H Lymph # (Auto) 0.96 L [place] # (Auto) 0.92 H Eos # (Auto) 0.16 Baso # (Auto) 0.02 Immature Gran # (Auto) 0.04 Sodium 140 Potassium 3.9 Chloride 105 Carbon Dioxide 30 Anion Gap 5 BUN 18 Creatinine 1.56 H Est Cr Clr Drug Dosing 45.4 Est GFR ( Amer) 48.6 Est GFR (Non-Af Amer) 41.9 BUN/Creatinine Ratio 11.5 Glucose 110 H Calcium 8.3 L Magnesium 1.8 Diagnostic Findings KUB X-Ray 12/18/22 07:00 KUB CLINICAL HISTORY: Nephrolithiasis. FINDINGS: 2 AP supine abdominal radiographs are compared to study dated 12/16/2022 and correlated with abdominal CT dated 12/14/2022. There is a nonobstructed abdominal bowel gas pattern. Moderate fecal retention is seen throughout the colon. Numerous radiodensities projecting over the abdomen correspond to contrast retained within colonic diverticula. The patient's right ureteral stone is not clearly seen. No calcifications are identified projecting over either kidney. Pelvic phleboliths are again noted. The skeletal structures are osteopenic and appear intact. There is moderate lumbosacral spondylosis. A right hip arthroplasty is in place. Arthritic change is noted in the left hip. IMPRESSION: 1. There is no radiographic evidence of nephrolithiasis. Specifically, the known right ureteral stone seen by CT on 12/14/2022 is not visualized. 2. Numerous radiodensities projecting over the abdomen correspond to retained barium contrast within colonic diverticula. 3. No bowel obstruction. Electronically signed by: Darci Jacobson M.D. 12/18/2022 9:21 AM PG Care Time/CCT Total # of Minutes Spent Total Time Spent with Patient: Total time spent is greater than 50% in coordination of care (as documented) at patient's floor/unit and/or counseling patient: Coding Level of Care Code 43363 SUB INP/OBS CARE MIN Diagnoses Ureterolithiasis N20.1 Constipation K59.00 VONDA (acute kidney injury) N17.9 Pulmonary emboli I26.99 Hypertension I10 HLD (hyperlipidemia) E78.5 Swelling of upper extremity M79.89 Ulcer DVT (deep venous thrombosis) I82.409
[2022-12-18] MEDS: TAMSULOSIN HCL 0.4 MG CAP PO SCH (20:48)
[2022-12-18] MEDS: LATANOPROST 0.005% OP SOLN 2.5 ML BTL OPB SCH (20:49)
[2022-12-18] MEDS: MELATONIN 3 MG TAB PO PRN (20:51)
[2022-12-19] MEDS: ACETAMINOPHEN 500 MG TAB PO PRN ×2 (04:31→17:41)
[2022-12-19 07:03] LABS: Hematocrit (blood only) 36.2 % (42.0-52.0); Hemoglobin 12.3 g/dl (14.0-18.0)
[2022-12-19 07:17] LABS: BUN Creatinine Ratio 14.1 (10-20); Calcium 8.3 mg/dl (8.5-10.1); Creatinine Clr Calc Pharmacy 55.3 ml/min; Est GFR (African American) 61.7 ml/min; Est GFR (Non-African American) 53.3 ml/min; Potassium 3.9 mmol/L (3.5-5.1)
[2022-12-19] MEDS: RIVAROXABAN 15 MG TAB PO SCH ×2 (08:42→20:09)
[2022-12-19] MEDS: ADVANCED PROBIOTIC 1250 MG CAPSULE PO SCH (08:42)
[2022-12-19] MEDS: CEFDINIR 300 MG CAP PO SCH ×2 (08:42→20:07)
[2022-12-19] MEDS: ATORVASTATIN 40 MG TAB PO SCH (08:42)
[2022-12-19] MEDS: TIMOLOL MALEATE 0.5% OP SOLN 5 ML BTL OPL SCH ×2 (08:42→20:09)
[2022-12-19] MEDS ORDERED: LOSARTAN POTASSIUM 50 MG TAB PO SCH (09:00)
--- NOTE | 2022-12-19 13:14 | XRay Report ---
KUB CLINICAL HISTORY: R ureteral stone; recent severe constipation COMPARISON STUDY: CT of the abdomen and pelvis December 14, 2022. KUB December 18, 2022. FINDINGS: Bowel gas pattern is normal. Amount of stool is within normal limits. Right hip arthroplast y is incidentally noted. Right ureteral calculus on CT of December 14, 2022 is not evident radiograph ically. IMPRESSION: 1. No urinary calculi identified. 2. No bowel obstruction. Unremarkable amount of stool. ACT 112: Negative or not required by law. Electronically signed by: Huang Mckoy M.D. 12/19/2022 1:13 PM
[2022-12-19 15:05] LABS: Basophils # (auto) 0.03 K/uL (0-0.2); Basophils % (auto) 0.3 %; Eosinophils # (auto) 0.13 K/uL (0-0.50); Eosinophils % (auto) 1.3 %; Hematocrit (blood only) 40.6 % (42.0-52.0); Hemoglobin 13.7 g/dl (14.0-18.0); Immature Granulocytes # (auto) 0.04 K/uL (0.01-0.20); Immature Granulocytes % (auto) 0.4 %; Lymphocytes % (auto) 8.1 %; Mean Corpuscular Hgb Conc 33.7 g/dL (32.0-36.0); Mean Corpuscular Volume 97.8 fL (80.0-100.0); Mean Platelet Volume 10.2 fL (9.4-12.4); Monocytes # (auto) 0.76 K/uL (0.11-0.59); Monocytes % (auto) 7.7 %; Neutrophils # (auto) 8.07 K/uL (1.40-6.50); Neutrophils % (auto) 82.2 %; Platelet Count 219 K/uL (130-400); RDW Coefficient of Variation 13.3 % (11.5-14.5); RDW Standard Deviation 47.8 fL (36.4-46.3); Red Blood Count 4.15 M/uL (4.70-6.10); White Blood Count 9.83 K/ul (4.8-10.8)
[2022-12-19 15:34] LABS: Appearance Urine Clear (Clear); Bacteria Urine Automated Negative (Negative); Bilirubin Urine Negative (Negative); Blood Urine 2+ (Negative); Color Urine Yellow; Epithelial Cell Urine Auto 0-5 /lpf (0-5); Glucose Urine UA Negative (Negative); Ketones Urine Trace (Negative); Leukocyte Esterase Urine Negative (Negative); Nitrite Urine Negative (Negative); Protein Urine 1+ (Negative); Specific Gravity Urine 1.021 (1.000-1.030); Urobilinogen Urine Negative (Negative); pH Urine 5.5 (4.5-7.5)
[2022-12-19] MEDS: LATANOPROST 0.005% OP SOLN 2.5 ML BTL OPB SCH (20:08)
[2022-12-19] MEDS: TAMSULOSIN HCL 0.4 MG CAP PO SCH (20:09)
--- NOTE | 2022-12-19 20:10 | Hospitalist Progress Note ---
Date of Service December 19, 2022 Assessment & Plan (1) Ureterolithiasis: Plan: obstructing right-sided ureteral kidney stone, 4-5mm in size, with associated right-sided hydroureteronephrosis. KUB today - can't readily see the stone, but it certainly may still be present given ongoing right lower back symptoms, intermittent chills, left shift on CBC, and Cr not returning to his baseline of <1. perhaps the stone is at the UVJ. I spoke with Dr Mock. We both collectively agreed that he should remain hospitalized for observation at least 1 more night given the chills, poor appetite today, etc. blood cultures were dispatched this afternoon; follow these carefully. repeat ua and urine cx obtained. he remains on cefdinir 300mg BID. prior urine cx showed 7000 CFU of a GNR only. procal negative today. wbc count normal, but left shift present. cont close observation, tylenol and/or oxy for pain relief, oral hydration, and repeat labs in am. will ask on-call urology to check on him in am tomorrow. (2) Constipation: Plan: opiate-induced finally resolved with GoLytely he feels much better from this standpoint hold miralax and senna today - likely resume 1 or both tomorrow (3) VONDA (acute kidney injury): Plan: Peak Cr 1.6 now 1.2 baseline <1 suggesting he may not have passed his stone cont to hold ARB avoid NSAIDs (4) Pulmonary emboli: Plan: Dx Nov 2022, unprovoked - with LLE DVT Remains on xarelto 15mg bid x 21 days until 12/22/22 then 20mg daily after starting 12/22/22 PSA-- 0.333 urine cytology - negative recent CT chest/abd/pelvis without any mass lesion EGD/colon as outpatient? sees [facility] locally; last colonoscopy about 5 years ago?? referral made back to [facility] at [facility] for consideration of endoscopies heme referral for hypercoagulable w/u has been sent and he sees Dr Artie Ivy locally - early January (5) Hypertension: Plan: Typically on olmesartan daily but cont to hold given VONDA BPs still reasonable at this time without the ARB will use HCTZ as this will help his BP, edema, and potentially help prevent stones if his are calcium based (6) HLD (hyperlipidemia): Plan: Continue atorvastatin 40 mg p.o. every morning (7) Swelling of upper extremity: Plan: Venous DOPPLER NEGATIVE (8) Ulcer: Plan: LEFT heel, hx Maureen deformity of calcaneal bone (also hx achilles tendon rupture) wound nurse recs appreciated --> duoderm to soften callus and need f/u with outpatient wound care center ortho consult appreciated cont orthotic shoe appreciate orthotics consultation (9) DVT (deep venous thrombosis): Plan: LLE - recent dx - as above xarelto Plan updated pt's twice today by phone updated pt's son at bedside yesterday PT consult completed - ok for home with family when medically ready discharge canceled for today observe overnight for reasons above Admission and Anticipated Discharge Date Admission Date: December 15, 2022 Subjective saw patient multiple times throughout the day first visit was this am - he had been ambulating the halls after eating a good breakfast he reported his abdomen felt "much better" after he passed numerous stools with GoLytely last pm/overnight lots of firm/hard stool was passed; now liquid he asked about discharge and preparations were being made for such early afternoon I returned to his room and he was huddled up under multiple blankets he asked "why am I having chills?" this was the first time he had mentioned such during the week he reports the chills started when he got admitted to the hospital he states he simply didn't tell anyone about it he skipped lunch today stating he wasn't hungry, and even by dinner time he still was not hungry we discussed discharge home vs another day of observation due to the chills further, although WBC count on cbc is normal, he has a neutrophil predominance present; procal neg ua still with blood/protein he was emotional when we decided to stay hospitalized rather than d/c home Review of Systems Review of Systems: gen - no fevers, but having chills cv - no chest pain pulm - no dyspnea GI - still with right lower back pain (not flank, but below the flank); no ant abd pain; no nausea or emesis - occasional hematuria, no dysuria Physical Exam Physical Exam: gen - NAD, comfortable; this afternoon he looked unwell mouth - MMM neck - no JVD heart - RRR, s1 s2, no murmur lungs - CTA b/l abd - distension resolved; BS+; NT; soft; no flank tenderness to palpation musculo / back - tender paraspinal region right low back ext - 1+ edema b/l (shins and ankles); pulses 2+ b/l skin - left foot in walking orthotic shoe; shoe removed; dressings intact over heel; NO surrounding cellulitis of the foot or plantar surface psych - tearful Results & Data Results & Data ([facility]) Vital Signs (Past 12 Hours) Vital Signs Temp Pulse Resp BP Pulse Ox O2 Del Method 12/19/22 15:11 36.7 C 86 16 162/77 H 97 Room Air Laboratory Results Laboratory Results - last 24 hr 12/19/22 12/19/22 12/19/22 06:26 06:26 14:46 WBC 9.83 RBC 4.15 L Hgb 12.3 L 13.7 L Hct 36.2 L 40.6 L MCV 97.8 MCH 33.0 MCHC 33.7 RDW Std Deviation 47.8 H RDW Coeff of [place] 13.3 Plt Count 219 MPV 10.2 Immature Gran % (Auto) 0.4 Neut % (Auto) 82.2 Lymph % (Auto) 8.1 [place] % (Auto) 7.7 Eos % (Auto) 1.3 Baso % (Auto) 0.3 Neut # (Auto) 8.07 H Lymph # (Auto) 0.80 L [place] # (Auto) 0.76 H Eos # (Auto) 0.13 Baso # (Auto) 0.03 Immature Gran # (Auto) 0.04 Sodium 140 Potassium 3.9 Chloride 104 Carbon Dioxide 29 Anion Gap 7 BUN 18 Creatinine 1.28 Est Cr Clr Drug Dosing 55.3 Est GFR ( Amer) 61.7 Est GFR (Non-Af Amer) 53.3 BUN/Creatinine Ratio 14.1 Glucose 97 Calcium 8.3 L Procalcitonin Urine Color Urine Appearance Urine pH Ur Specific [place] Urine Protein Urine Glucose (UA) Urine Ketones Urine Blood Urine Nitrite Urine Bilirubin Urine Urobilinogen Ur Leukocyte Esterase Urine WBC (Auto) Urine RBC (Auto) U Hyaline Cast (Auto) U Epithel Cells (Auto) Urine Bacteria (Auto) 12/19/22 12/19/22 14:46 15:20 WBC RBC Hgb Hct MCV MCH MCHC RDW Std Deviation RDW Coeff of [place] Plt Count MPV Immature Gran % (Auto) Neut % (Auto) Lymph % (Auto) [place] % (Auto) Eos % (Auto) Baso % (Auto) Neut # (Auto) Lymph # (Auto) [place] # (Auto) Eos # (Auto) Baso # (Auto) Immature Gran # (Auto) Sodium Potassium Chloride Carbon Dioxide Anion Gap BUN Creatinine Est Cr Clr Drug Dosing Est GFR ( Amer) Est GFR (Non-Af Amer) BUN/Creatinine Ratio Glucose Calcium Procalcitonin 0.08 Urine Color Yellow Urine Appearance Clear Urine pH 5.5 Ur Specific [place] 1.021 Urine Protein 1+ H Urine Glucose (UA) Negative Urine Ketones Trace H Urine Blood 2+ H Urine Nitrite Negative Urine Bilirubin Negative Urine Urobilinogen Negative Ur Leukocyte Esterase Negative Urine WBC (Auto) 1-5 Urine RBC (Auto) 10-30 H U Hyaline Cast (Auto) 1-5 U Epithel Cells (Auto) 0-5 Urine Bacteria (Auto) Negative Diagnostic Findings KUB X-Ray 12/19/22 08:26 KUB CLINICAL HISTORY: R ureteral stone; recent severe constipation COMPARISON STUDY: CT of the abdomen and pelvis December 14, 2022. KUB December 18, 2022. FINDINGS: Bowel gas pattern is normal. Amount of stool is within normal limits. Right hip arthroplasty is incidentally noted. Right ureteral calculus on CT of December 14, 2022 is not evident radiographically. IMPRESSION: 1. No urinary calculi identified. 2. No bowel obstruction. Unremarkable amount of stool. ACT 112: Negative or not required by law. Electronically signed by: Huang Mckoy M.D. 12/19/2022 1:13 PM PG Care Time/CCT Total # of Minutes Spent Total Time Spent with Patient: Total time spent is greater than 50% in coordination of care (as documented) at patient's floor/unit and/or counseling patient: Coding Level of Care Code 28292 SUB INP/OBS CARE 3/50MIN Diagnoses Ureterolithiasis N20.1 Constipation K59.00 VONDA (acute kidney injury) N17.9 Pulmonary emboli I26.99 Hypertension I10 HLD (hyperlipidemia) E78.5 Swelling of upper extremity M79.89 Ulcer DVT (deep venous thrombosis) I82.409
[2022-12-20] MEDS: ACETAMINOPHEN 500 MG TAB PO PRN (04:05)
[2022-12-20 06:01] LABS: Basophils # (auto) 0.03 K/uL (0-0.2); Basophils % (auto) 0.3 %; Eosinophils # (auto) 0.14 K/uL (0-0.50); Eosinophils % (auto) 1.6 %; Hematocrit (blood only) 36.6 % (42.0-52.0); Hemoglobin 12.7 g/dl (14.0-18.0); Immature Granulocytes # (auto) 0.04 K/uL (0.01-0.20); Immature Granulocytes % (auto) 0.5 %; Lymphocytes # (auto) 0.98 K/uL (1.2-3.4); Lymphocytes % (auto) 11.1 %; Mean Corpuscular Hgb Conc 34.7 g/dL (32.0-36.0); Mean Corpuscular Volume 95.1 fL (80.0-100.0); Mean Platelet Volume 10.1 fL (9.4-12.4); Monocytes # (auto) 0.83 K/uL (0.11-0.59); Monocytes % (auto) 9.4 %; Neutrophils # (auto) 6.82 K/uL (1.40-6.50); Neutrophils % (auto) 77.1 %; Platelet Count 215 K/uL (130-400); RDW Coefficient of Variation 13.2 % (11.5-14.5); RDW Standard Deviation 45.7 fL (36.4-46.3); Red Blood Count 3.85 M/uL (4.70-6.10); White Blood Count 8.84 K/ul (4.8-10.8)
[2022-12-20 06:18] LABS: BUN Creatinine Ratio 12.5 (10-20); Calcium 8.7 mg/dl (8.5-10.1); Creatinine Clr Calc Pharmacy 49.2 ml/min; Est GFR (African American) 53.5 ml/min; Est GFR (Non-African American) 46.2 ml/min; Potassium 3.7 mmol/L (3.5-5.1)
[2022-12-20] MEDS ORDERED: MAGNESIUM OXIDE 400 MG TAB PO SCH (09:00)
[2022-12-20] MEDS ORDERED: hydroCHLOROthiazide 25 MG TAB PO SCH (09:00)
[2022-12-20] MEDS ORDERED: POTASSIUM CHLORIDE 10 MEQ TABCR PO SCH (09:00)
[2022-12-20] MEDS: TIMOLOL MALEATE 0.5% OP SOLN 5 ML BTL OPL SCH (09:03)
[2022-12-20] MEDS: ADVANCED PROBIOTIC 1250 MG CAPSULE PO SCH (09:04)
[2022-12-20] MEDS: RIVAROXABAN 15 MG TAB PO SCH (09:04)
[2022-12-20] MEDS: ATORVASTATIN 40 MG TAB PO SCH (09:04)
[2022-12-20] MEDS: CEFDINIR 300 MG CAP PO SCH (09:04)
--- NOTE | 2022-12-20 14:40 | Discharge Summary ---
Date of Service December 20, 2022 Admission HPI Per Admitting Provider Isaac Knox is a [age]-year-old male with history of hypertension and hyperlipidemia. He was recently hospitalized from 11/28/2022 through 11/30/2022 with unprovoked extensive pulmonary emboli and small pulmonary infarct. Patient also found to have a left superficial femoral vein and deep left popliteal vein thrombosis. He was managed with Lovenox and transitioned to oral Xarelto and is currently on Xarelto 50 mg p.o. twice daily. He notes that during his previous hospital stay he was having some right flank discomfort however he thought that it may be due to his acute illness and that perhaps the pain would improve on its own. He was discharged home on 11/30/2022 and has overall been doing well. He has had persistent right flank pain intermittently. This evening around midnight patient was reading and had an acute onset of severe right flank pain. The pain is located in his right low back and flank. 10/10 in severity with associated nausea. Patient states that he is urinating without difficulty but it is dark in color. No dysuria. No additional complaints at this time. Specifically denies fever, chills, chest pain, cough, shortness of breath, abdominal pain, diarrhea. In the ER he is afebrile, hemodynamically stable and nontoxic in appearance. He was administered 2 doses of fentanyl for pain management and presently feels much improved. ER course: Fentanyl 50 mcg x 2 doses Tamsulosin 0.4 mg Discharge Exam gen - NAD, comfortable; this afternoon he looked unwell mouth - MMM neck - no JVD heart - RRR, s1 s2, no murmur lungs - CTA b/l abd - distension resolved; BS+; NT; soft; no flank tenderness to palpation musculo / back - tender paraspinal region right low back ext - 1+ edema b/l (shins and ankles); pulses 2+ b/l skin - left foot in walking orthotic shoe; shoe removed; dressings intact over heel; NO surrounding cellulitis of the foot or plantar surface psych - tearful Discharge Data Allergies Allergy/AdvReac Type Severity Reaction Status Date / Time No Known Allergies Allergy Unknown Verified 12/14/22 02:16 Consultations 12/14/22 03:47 ED Decision to Admit Stat 12/14/22 05:33 Consult Urology Routine 12/15/22 18:15 Consult Orthopedic Surgery Routine Ordered Studies 12/14/22 01:51 CT abd pelvis wo con Urgent 12/15/22 08:44 US venous doppler UE BI Urgent Hospital Course (1) Ureterolithiasis: obstructing right-sided ureteral kidney stone, 4-5mm in size, with associated right-sided hydroureteronephrosis. KUB today - can't readily see the stone, but it certainly may still be present given ongoing right lower back symptoms, intermittent chills, left shift on CBC, and Cr not returning to his baseline of <1. perhaps the stone is at the UVJ. I spoke with Dr Mock. We both collectively agreed that he should remain hospitalized for observation at least 1 more night given the chills, poor appetite today, etc. blood cultures were dispatched this afternoon; follow these carefully. repeat ua and urine cx obtained. he remains on cefdinir 300mg BID. prior urine cx showed 7000 CFU of a GNR only. procal negative today. wbc count normal, but left shift present. cont close observation, tylenol and/or oxy for pain relief, oral hydration, and repeat labs in am. will ask on-call urology to check on him in am tomorrow. (2) Constipation: opiate-induced finally resolved with GoLytely he feels much better from this standpoint hold miralax and senna today - likely resume 1 or both tomorrow (3) VONDA (acute kidney injury): Peak Cr 1.6 now 1.2 baseline <1 suggesting he may not have passed his stone cont to hold ARB avoid NSAIDs (4) Pulmonary emboli: Dx Nov 2022, unprovoked - with LLE DVT Remains on xarelto 15mg bid x 21 days until 12/22/22 then 20mg daily after starting 12/22/22 PSA-- 0.333 urine cytology - negative recent CT chest/abd/pelvis without any mass lesion EGD/colon as outpatient? sees [facility] locally; last colonoscopy about 5 years ago?? referral made back to [facility] for consideration of endoscopies heme referral for hypercoagulable w/u has been sent and he sees Dr Artie Ivy locally - early January (5) Hypertension: Typically on olmesartan daily but cont to hold given VONDA BPs still reasonable at this time without the ARB will use HCTZ as this will help his BP, edema, and potentially help prevent stones if his are calcium based (6) HLD (hyperlipidemia): Continue atorvastatin 40 mg p.o. every morning (7) Swelling of upper extremity: Venous DOPPLER NEGATIVE (8) Ulcer: LEFT heel, hx Maureen deformity of calcaneal bone (also hx achilles tendon rupture) wound nurse recs appreciated --> duoderm to soften callus and need f/u with outpatient wound care center ortho consult appreciated cont orthotic shoe appreciate orthotics consultation (9) DVT (deep venous thrombosis): LLE - recent dx - as above xarelto Plan updated pt's twice today by phone updated pt's son at bedside yesterday PT consult completed - ok for home with family when medically ready discharge canceled for today observe overnight for reasons above Discharge Plan Discharge Items Patient Disposition: Home - Self-Care Reason For Visit: Right-sided Kidney Stone Discharge Diagnosis: 1. 4-5mm right-sided kidney stone in the right ureter - urology follow-up needed 2. recent left leg DVT with pulmonary emboli 3. ulcer of left heel - improving 4. severe constipation - improved 5. high blood pressure 6. 2mm left-sided kidney stone - no treatment needed 7. recent CT chest showing the pulmonary emboli but possibly a pulmonary inf arct of the right upper lobe - recommend repeat chest CT in 3 months; your family doctor can set this up for you Activity: As commented below Activity Comment: gradually increase activities over the next 7-10 days as tolerated Sexual Activity: Wait until after follow-up appointment Exercise/Sports: Wait until after follow-up appointment Driving/Machine Use: No driving if taking narcotic pain killer medication Non-emergency contact: Primary Care Provider, Human Resources Benefits Assistant and Urologist Call non-emergency contact if: you have any medication questions, your symptoms worsen, your pain is not controlled, your pain is worsening, your pain is unusual for you, your pain is concerning for you and you have a fever Follow-up/Referrals: Maged Mock MD [Physician] - 12/30/22 3:30 pm (7-10 days; f/u of right sided kidney stone) Amee Greco DO, FACEP [Physician] - 12/26/22 ([facility]) Joellen Crespo CRNP [Nurse Practitioner] - 12/23/22 8:45 am (first available - to discuss possible EGD/colonoscopy (recent unprovoked DVT with PEs)) Clovis Alva MD [Surgeon] - 02/10/23 (Hematology Please arrive 15 minutes prior to scheduled appointment *Will receive information in the mail regarding appointment*) Davida Mota CRNP [Primary Care Provider] - (5 days ) Diet: Heart Healthy Addtl Attending Provider Instructions: Mr Knox, You were hospitalized for a kidney stone on the right side of your urinary tract. The stone is approximately 4-5mm in size. You were seen by [facility] who recommended a trial of spontaneous passage rather than immediate surgery. Subsequent x-rays over the course of your stay appeared to show that the stone had moved further along in the ureter. It is uncertain if the stone has passed into the bladder or if it remains in the latter portion of the ureter. Throughout the stay you received IV antibiotics then oral antibiotics to cover for the possibility of urinary tract infection. In addition you had severe constipation from the pain killer medication. This finally resolved the evening of 12/18. Your x-rays on 12/19 showed much improved constipation. Blood work on 12/20/22 showed stable kidney function and electrolytes. A repeat urinalysis on 12/19/22 was improved from the previous urinalysis although there is still some remaining blood/protein from the kidney stone moving. You had been having chills during your stay. These may be related to your body trying to pass the kidney stone. As a precautionary measure we took additional blood & urine cultures to ensure no new infection had developed. Thus far the repeat cultures are negative from 12/19/22. Recommendations - 1. Kidney stone treatments - * tamsulosin 0.4mg once a day at bedtime; this is a blood pressure medication that can help pass your kidney stone; it is also used for enlarged prostate; start this TONIGHT * oxycodone 5mg every 6 hours as needed for moderate to severe pain * this medication WILL CAUSE constipation * it can also make you sleepy; thus, no driving a car, operating heavy machinery, or use of alcohol while taking this medication * [id number] tylenol 1000mg every 6 hours as needed for mild pain; maximum 3000mg in 24 hours 2. Antibiotics for possible urinary tract infection - * cefdinir 300mg twice daily x 7 days, take your first dose TONIGHT upon return home * this prescription was not available at [facility] on [facility] * I instead sent this prescription to [facility] on [facility] - they had it in stock 3. For high blood pressure - * please HOLD your Olmesartan for now; don't throw away; you may need it still in the near-future * switch to hydrochlorothiazide 12.5mg once daily each morning; this is a water pill that will help your swelling in your legs as well as your high blood pressure * hydrochlorothiazide requires supplementation of potassium and magnesium; thus, please take potassium/magnesium supplements; these were sent to [facility] for you 4. Xarelto for your DVT and PE blood clots - * until the evening of 12/21/22 take 15mg twice daily of the Xarelto * then, on the morning of 12/22/22, switch to the 20mg dose and take ONCE A DAY thereafter 5. For constipation, especially if you are having to take the oxycodone medication - * miralax 1 serving daily ([id number]) +/- * senokot 2 tabs daily (also [id number]) 6. Left heel ulcer - * dressing changes instructions - * change the dressing EVERY OTHER DAY (next dressing change is 12/22/22) * clean and dry the small ulcer/wound * apply small amount of aquacel ag * cover with foam dressing * may use small amount of tape to secure the edges of foam dressing * use the special orthotic shoe any time you are ambulating * try to keep pressure off the heel as much as possible * keep the dressings clean/dry when taking showers 7. Additional instructions - * strain all urine * if you pass the stone please retrieve it and place in a cup; bring to your appointment with Dr Mock from Urology * use the color of your urine as a guide; if the urine is dark/concentrated please drink a bit more water; keep your urine light yellow; good hydration will help you pass your stone and prevent other stones from forming Follow-up - see separate section Return to [facility] if - * you have fevers over 100 degrees * you have worsening right sided flank, back, or abdominal pain * you have nausea and/or vomiting * you are unable to eat/drink * you have large amounts of blood in your urine (a little amount of blood is ok with a stone, but large amounts are concerning) * you are unable to void * you develop severe diarrhea * any other concerns It was our pleasure to care for you at [facility]! Please continue to feel better, Martin Owens Pending Studies at Discharge: No Stand-Alone Forms: My [facility], Smoking Cessation Medications and DC Order Prescriptions: New tamsulosin 0.4 mg Capsule 0.4 mg PO HS Qty: 30 0RF oxycodone 5 mg Tablet 5 mg PO Q6H PRN (Reason: pain) Qty: 15 0RF hydrochlorothiazide 12.5 mg tablet 12.5 mg PO QAM Qty: 30 1RF Rx Instructions: for high blood pressure, swelling, and prevention of kidney stones potassium chloride 10 mEq tablet,ER particles/crystals 10 meq PO DAILY Qty: 30 1RF magnesium oxide 400 mg (241.3 mg magnesium) tablet 400 mg PO DAILY Qty: 30 1RF cefdinir 300 mg Capsule 300 mg PO BID 7 Days Qty: 14 0RF Continued latanoprost 0.005 % Drops 1 drp OPB HS atorvastatin 40 mg Tablet 40 mg PO QAM timolol 0.5 % Drops 1 drp OPL BID ammonium lactate 12 % lotion 1 applic TOPICAL BID Rx Instructions: apply to affected area on arms and legs Xarelto 20 mg tablet 20 mg PO DAILY Qty: 90 0RF Rx Instructions: TO START ON 12/22/22. must administer with evening meal , please start taking Xarelto 20 mg daily ONLY after you complete a 21 day treatment with Xarelto 15 mg BID Xarelto 15 mg tablet 15 mg PO BID 21 Days Qty: 42 0RF Rx Instructions: must administer with a meal/food Discontinued olmesartan 20 mg tablet 20 mg PO DAILY Discharge Orders: Discharge Order (Routine); Ordered 12/20/22 Ordered By: Martin Hays/Other Patient Handouts: Understanding Kidney Stones, ED Urine Strainer Admission Data Admit Date/Time: 12/15/22 18:01 Attending Provider: Martin Owens Admit Provider: Kiley Guzman Primary Care Provider: Davida Mota Other Providers: Kiley Guzman ; Maged Mock ; Duarte Guzman Coding Diagnoses Ureterolithiasis N20.1 Constipation K59.00 VONDA (acute kidney injury) N17.9 Pulmonary emboli I26.99 Hypertension I10 HLD (hyperlipidemia) E78.5 Swelling of upper extremity M79.89 Ulcer DVT (deep venous thrombosis) I82.409
[2022-12-21] MEDS ORDERED: RIVAROXABAN 20 MG TAB PO SCH (16:30)
== END 2022-12-20 16:05 | disposition home or self-care (01) | DRG 693 ==
LOC: ED 01:22 → 3N 01:22 → SUATTDRO 04:06 → 3N 04:54 → SUATTDRO 12-15 18:01